=== PATIENT | female | born 1955 | race Caucasian/White ===

== ENCOUNTER → 2022-08-15 14:03 | Outpatient (BNVA) | payer OTHER, SELFPAY | PROVIDERS: Visit Provider Internal Medicine | DX: I25.10 Atherosclerotic heart disease of native coronary artery without angina pectoris (principal); I47.20 Ventricular tachycardia, unspecified; I50.32 Chronic diastolic (congestive) heart failure; I48.19 Other persistent atrial fibrillation; Z95.2 Presence of prosthetic heart valve; Z86.718 Personal history of other venous thrombosis and embolism; Z79.01 Long term (current) use of anticoagulants; Z79.899 Other long term (current) drug therapy; Z45.02 Encounter for adjustment and management of automatic implantable cardiac defibrillator | CPT/HCPCS: 93005; 99202 ==

== ENCOUNTER 2022-09-14 14:03 | Outpatient (REF) | payer OTHER, SELFPAY ==
--- NOTE | 2022-09-14 15:03 | CA_ITS ---
Transthoracic Echocardiogram Patient (Last, First, Middle): Mirna Dwyer, Gender: Female Date of : 1955 Age: 66 Procedure Date: 09/14/2022 Procedure Type: Transthoracic Echocardiogram Location: OP Height: 152.4 cm Weight: 68.04 kg BSA: 1.65 m2 Heart Rate: bpm BP: 116 / 56 mmHg Airline Pilot/First Officer: Referring MD: Ok Macias MD Math Professor: Danie Howell MD Symptoms: i47.2 v tach Z95.2 - Presence of prosthetic heart valve Study Quality: Adequate ECG Rhythm: Sinus with extra beats Conclusions: - 1. Normal LV systolic function 2. Moderate right-sided chamber enlargement 3. Normally function bioprosthetic mitral valve in place with mean gradient of 3 mmHg 4. Normal RV systolic pressure 5. No gross pericardial effusion Findings Left Ventricle Normal left ventricular size, thickness, and systolic function. The visually estimated ejection fraction is between 55-60%. Diastolic function is indeterminate on the basis of available data. Right Ventricle Moderately increased right ventricular cavity size. There is a pacemaker wire seen in the right ventricle. Atria The left atrium is likely dilated. Patent foramen ovale detected using by color Doppler. There is evidence of a patent foramen ovale with left to right shunting. The right atrium is moderately dilated. Aortic Valve The aortic valve was not well visualized. There is mild calcification of the aortic valve. There is no aortic valve stenosis. There is mild aortic valve regurgitation. Mitral Valve A bioprosthetic mitral valve is present. The prosthetic mitral valve appears to be functioning normally. the bioprosthetic valve is well seated without abnormal rocking motion. There is no significant mitral regurgitation appreciated on this study. Mean gradient across the mitral valve is 3 mmHg Pulmonic Valve The pulmonic valve was not well visualized. Tricuspid Valve Likely normal tricuspid valve structure and function. There is mild tricuspid valve regurgitation. The right ventricular systolic pressure is normal. The right ventricular systolic pressure is 27 mmHg. Normal right atrial pressure. There is no evidence of pulmonary hypertension. Great Vessels All visible segments of the aorta are normal in size. The pulmonary artery was not well visualized. Venous The inferior vena cava is normal in size and collapses greater than 50% with inspiration. Pericardium/Pleural There is no evidence of pericardial effusion. Prior Study Comparison No prior study available for comparison. Measurements 2D Linear Measurements IVSd: 1.05 0.6-0.9/0.6-1.0 cm LVIDd: 3.86 3.9-5.3/4.2-5.9 cm LVIDd Index: 2.34 2.4-3.2/2.2-3.1 cm/m2 LVIDs: 2.57 2.0-3.6 cm LVPWd: 1.01 0.7-1.1 cm Ao Root: 2.60 2.1-3.5 cm LA Diam: 4.50 2.7-3.8/3.0-4.0 cm LAIDs Index: 2.73 1.5-2.3 cm/m2 LV Mass: 155.96 67-162/88-224 g LV Mass Index: 94.52 43-95/49-115 g/m2 LVOT Diam: 2.20 3.0+(-)1.3 cm Mitral Valve MV VTI: 0.40 MV Pk Ryan: 1.33 MV Mn Ryan: 0.77 MV Pk Grad: 7.00 MV Mn Grad: 3.00 MV Pk E: 1.04 MV Decel Time: 365.00 E'Lateral: 11.90 E'Medial: 8.05 E/E' Med: 12.90 E/E' Lat: 8.70 PHT: 107.00 MVA PHT: 2.06 MVA Continuity: 2.89 Decel Duval: 2.84 Aortic Valve AoV Pk Ryan: 1.53 AoV Mn Ryan: 0.97 AoV VTI: 0.31 AoV Pk Grad: 9.00 Aov Mn Grad: 5.00 KATH Cont.VTI: 3.70 AI Pk Ryan: 4.13 AI Duval: 1.54 LVOT LVOT Pk Ryan: 1.33 LVOT Mn Ryan: 0.93 LVOT VTI: 0.31 LVOT Pk Grad: 7.00 LVOT Mn Grad: 4.00 LVOT Diam: 2.20 LVOT Area: 3.80 Diastolic Function MV Pk E: 1.04 E'Medial: 8.05 E/E' Med: 12.90 E' Laterial: 11.90 E/E' Lat: 8.70 Tricuspid Valve TR Pk Ryan: 2.46 TR Pk Grad: 24.00 RA Press: 3.00 RVSP: 27.00 Great Vessels Aorta Ao Root-2D: 2.60 2.0-3.7 cm Ao Asc: 3.10 2.1-3.4 cm Pulmonary Valve PV Pk Ryan: 0.72 Peak PV Grad: 2.00 Updated in Other Vendor System with Status of Final Danie Howell MD electronically signed on 09/15/2022 11:40:25 AM with status of Final
--- NOTE | 2022-09-14 17:01 | PFT_ITS ---
Forced vital capacity 63%, FEV1 68%, FEV1/FVC ratio is 82. [id number] 70%. MVV 67%. Post bronchodilator therapy, there is no significant change except the FEF increases by 13%. Total lung capacity 79%. Residual volume 95%. Diffusion capacity 69%. CONCLUSION: 1. Mild restrictive pulmonary disorder. 2. A possible very mild small airway obstructive disorder, which improved to normal after bronchodilator therapy. There is a small possibility that patient may have a mild degree of bronchial asthma or reactive airways; however, this will be correlated with clinical picture. MD MEGHA Medina/MODL / [id number]
== END 2022-09-14 14:04 | disposition home or self-care (01) ==
LOC: HO.RESP 14:03
PROVIDERS: Visit Provider Internal Medicine
DX: R06.02 Shortness of breath (principal); I47.20 Ventricular tachycardia, unspecified; I50.32 Chronic diastolic (congestive) heart failure; Z95.2 Presence of prosthetic heart valve
CPT/HCPCS: 93306; 94060; 94727; 94729

== ENCOUNTER → 2022-10-25 14:28 | Outpatient (BNVA) | payer OTHER, SELFPAY | PROVIDERS: PCP Family Medicine; Visit Provider Internal Medicine | DX: J98.4 Other disorders of lung (principal); R06.09 Other forms of dyspnea; M41.20 Other idiopathic scoliosis, site unspecified | CPT/HCPCS: 99202 ==

== ENCOUNTER → 2023-01-01 13:55 | Outpatient (BNVA) | payer OTHER, MEDICAID, SELFPAY | PROVIDERS: PCP Family Medicine; Visit Provider Internal Medicine | DX: R94.2 Abnormal results of pulmonary function studies (principal); R06.00 Dyspnea, unspecified; J98.4 Other disorders of lung; M41.20 Other idiopathic scoliosis, site unspecified | CPT/HCPCS: Q3014 ==

== ENCOUNTER → 2023-01-03 13:24 | Outpatient (BNVA) | payer OTHER, MEDICAID, SELFPAY | PROVIDERS: PCP Family Medicine; Visit Provider Internal Medicine | DX: I47.20 Ventricular tachycardia, unspecified (principal); I48.19 Other persistent atrial fibrillation; I25.10 Atherosclerotic heart disease of native coronary artery without angina pectoris; I50.32 Chronic diastolic (congestive) heart failure; Z95.2 Presence of prosthetic heart valve | CPT/HCPCS: 93005; 99212 ==

== ENCOUNTER 2023-02-21 14:17 | Outpatient (REF) | payer OTHER, MEDICAID, SELFPAY ==
--- NOTE | ~2023-02-21 | XR_ITS ---
EXAMINATION: XR lumbar spine 6V w bending, XR sacroiliac joint min 3V CLINICAL INFORMATION: Reason for Exam M41.20 - Other idiopathic scoliosis, site unspecified COMPARISON: None TECHNIQUE: 7 views of the lumbar spine. 3 views of the sacroiliac joints FINDINGS: 5 nonrib-bearing lumbar-type vertebral bodies. Vertebral body heights are maintained. Marked levoconvex scoliosis of the thoracolumbar spine which limits evaluation with moderate multilevel degenerative disc disease with loss of disc space height and facet arthropathy. There is stepwise grade 1 retrolisthesis of L1 on L2 and L2 on L3 which appears exaggerated in flexion. No definite pars defects appreciated within limitations of the exam given scoliosis. Partially imaged cardiac pacer, median sternotomy wires, mediastinal surgical clips and cardiac valve prosthesis. Atherosclerotic calcifications of the abdominal aorta. Sacroiliac joint spaces are maintained. No appreciable sacral fracture. Calcified phleboliths in the pelvis. XR/XR lumbar spine 6V w bending IMPRESSION: 1. Marked levoconvex scoliosis of the thoracolumbar spine which limits evaluation with moderate multilevel degenerative disc disease with loss of disc space height and facet arthropathy. 2. There is stepwise grade 1 retrolisthesis of L1 on L2 and L2 on L3 which appears exaggerated in flexion. No definite pars defects appreciated within limitations of the exam given scoliosis. 3. Sacroiliac joint spaces are maintained. No appreciable sacral fracture.
--- NOTE | ~2023-02-21 | XR_ITS ---
EXAMINATION: XR lumbar spine 6V w bending, XR sacroiliac joint min 3V CLINICAL INFORMATION: Reason for Exam M41.20 - Other idiopathic scoliosis, site unspecified COMPARISON: None TECHNIQUE: 7 views of the lumbar spine. 3 views of the sacroiliac joints FINDINGS: 5 nonrib-bearing lumbar-type vertebral bodies. Vertebral body heights are maintained. Marked levoconvex scoliosis of the thoracolumbar spine which limits evaluation with moderate multilevel degenerative disc disease with loss of disc space height and facet arthropathy. There is stepwise grade 1 retrolisthesis of L1 on L2 and L2 on L3 which appears exaggerated in flexion. No definite pars defects appreciated within limitations of the exam given scoliosis. Partially imaged cardiac pacer, median sternotomy wires, mediastinal surgical clips and cardiac valve prosthesis. Atherosclerotic calcifications of the abdominal aorta. Sacroiliac joint spaces are maintained. No appreciable sacral fracture. Calcified phleboliths in the pelvis. XR/XR sacroiliac joint min 3V IMPRESSION: 1. Marked levoconvex scoliosis of the thoracolumbar spine which limits evaluation with moderate multilevel degenerative disc disease with loss of disc space height and facet arthropathy. 2. There is stepwise grade 1 retrolisthesis of L1 on L2 and L2 on L3 which appears exaggerated in flexion. No definite pars defects appreciated within limitations of the exam given scoliosis. 3. Sacroiliac joint spaces are maintained. No appreciable sacral fracture.
== END 2023-02-21 14:18 | disposition home or self-care (01) ==
LOC: HO.XRAY 14:17
PROVIDERS: PCP Family Medicine; Visit Provider Nurse Practitioner Family
DX: M41.20 Other idiopathic scoliosis, site unspecified (principal); M51.36 Other intervertebral disc degeneration, lumbar region; M47.816 Spondylosis without myelopathy or radiculopathy, lumbar region; M53.3 Sacrococcygeal disorders, not elsewhere classified
CPT/HCPCS: 72114; 72202; 99202

== ENCOUNTER → 2023-03-04 23:59 | Outpatient (BNV) | payer OTHER, MEDICAID, SELFPAY ==
--- NOTE | 2023-03-06 14:32 | A.OFFVIS_ITS ---
Intake Intake Visit Reasons: Remote ICD Check- Agilvax Allergies No Known Allergies Allergy (Verified 02/21/23 14:29) [facility] Medical History Atherosclerotic cardiovascular disease Cardiac defibrillator in place Chronic heart failure with preserved ejection fraction PITTS (dyspnea on exertion) Persistent atrial fibrillation Restrictive lung disease Scoliosis (and kyphoscoliosis), idiopathic Ventricular tachycardia Surgical History History of open heart surgery S/P transcatheter mitral valve replacement (TMVR) Status post aorto-coronary artery bypass graft Status post mitral valve replacement with bioprosthetic valve Family History Mother No problems noted. Father No problems noted. Social History Alcohol intake: never Patient Tobacco Use Status: Former Tobacco user Office Procedures Cardiac Device Check Cardiac Device Check Details: Date of service 03/04/2023; Battery life <3 months; normal lead parameters; no treated VT/VF; ; normal ICD function. [id number] Cardiac Interrogation, implant defibrillator w/interim Procedure code (CPT) selection complete Assessment & Plan Assessment & Plan (1) Persistent atrial fibrillation: Code(s): I48.19 - Other persistent atrial fibrillation (2) Chronic heart failure with preserved ejection fraction: Code(s): I50.32 - Chronic diastolic (congestive) heart failure (3) Ventricular tachycardia: Code(s): I47.20 - Ventricular tachycardia, unspecified Coding Level of Care Code Procedure Only Diagnoses Persistent atrial fibrillation I48.19 Chronic heart failure with preserved ejection fraction I50.32 Ventricular tachycardia I47.20 CPT Codes Cardiac Device Check - Cardiac Device 13: [id number] Cardiac Interrogation, implant defibrillator w/interim ([id number])
== END ==
PROVIDERS: PCP Family Medicine; Visit Provider Internal Medicine
DX: I48.19 Other persistent atrial fibrillation (principal); Z95.810 Presence of automatic (implantable) cardiac defibrillator
CPT/HCPCS: 93295

== ENCOUNTER 2023-04-10 15:19 | Outpatient (REF) | payer OTHER, MEDICAID, SELFPAY ==
--- NOTE | ~2023-04-10 | CT_ITS ---
EXAMINATION: CT LUMBAR SPINE WITHOUT CONTRAST CLINICAL INFORMATION: Idiopathic scoliosis. COMPARISON: None available. TECHNIQUE: Axial 2 mm thin and reformatted 2 mm thin sagittal and coronal images of lumbar spine were obtained without contrast. This CT examination was performed using dose optimization techniques as appropriate, variously including the following: *Automated exposure control. *Adjustment of mA and/or kV according to patient size (this includes techniques or standardized protocols for targeted exams where dose is matched to indication/reason for exam; i.e. extremities or head). *Use of iterative reconstruction technique. DLP; 428 mGy-cm FINDINGS: There is significant levorotoscoliosis of dorsal lumbar junction. The vertebral heights are fairly in alignment. There is loss of L2-L3, L1-L2 and T2-L1 disc heights. The L4-L5 and L5-S1 disc heights are normal. There is significant bilateral L5-S1 and moderate residual lumbar facet joint arthropathy and hypertrophy. The T12-L1, L1-L2 disc levels are unremarkable. At L2-L3 disc level, there is mild AP canal stenosis secondary to facet joint arthropathy and scoliosis. There is moderate left neural foraminal narrowing secondary to scoliosis and moderate facet joint arthropathy. The right neural foramina is patent. No evidence of disc bulge or herniation. At L3-L4 disc level, there is no evidence of disc bulge, herniation or spinal stenosis. There is moderate narrowing of left neural foramina secondary to scoliosis and facet joint arthropathy. The right neural foramina is patent. At L4-L5 disc level, there is no evidence of disc bulge, herniation or spinal stenosis. The neural foramina are patent bilaterally. At L5-S1 disc level, no evidence of disc bulge, herniation or spinal canal stenosis. The neural foramina is patent. No aggressive lytic or sclerotic process seen. SI joints appear symmetrical. The paravertebral soft tissues are normal. There is mild sigmoid colon diverticulosis without diverticulitis. The presacral soft tissues are normal. CT/CT lumbar spine wo IV con IMPRESSION: 1. Levorotoscoliosis of dorsolumbar spine. 2. There are degenerative disc changes in the upper lumbar spine at the L4-L5 and L5-S1 disc heights appearing normal. 3. There is moderate narrowing of left neural foramina at L2-L3 and L3-L4 disc level due to levoscoliosis and moderate left facet joint arthropathy. 4. No disc bulge, herniation or spinal canal stenosis seen at any of the disc levels.
== END 2023-04-10 15:20 | disposition home or self-care (01) ==
LOC: HO.CT 15:19
PROVIDERS: PCP Family Medicine; Visit Provider Nurse Practitioner Family
DX: M41.20 Other idiopathic scoliosis, site unspecified (principal); M51.36 Other intervertebral disc degeneration, lumbar region
CPT/HCPCS: 72131

== ENCOUNTER 2023-05-06 13:08 | Outpatient (AMB) | payer OTHER, MEDICAID, SELFPAY ==
--- NOTE | 2023-05-06 13:23 | HO.SPINEOV ---
Intake Intake Visit Reasons: intervertebral disc degeneration, lumbar region Intake Note: Ms. Dwyer is here today c/o low back pain. CT Scan done @ [facility] [place]. Strategic Account Executive Required: No Allergies No Known Allergies Allergy (Verified 02/21/23 14:29) Assessment & Plan Assessment & Plan (1) Back pain: Code(s): M54.9 - Dorsalgia, unspecified Plan Dear Lorie, Thank you for referring Mrs Dwyer to our office today. She is a 67-year-old female who presents to the office today for evaluation of back pain in the setting of scoliosis. The patient has known about her scoliosis since she was young girl, was seen at some point [place] many years ago and recommended to have surgery but at that time the pain was not that bad so she deferred this. She tried physical therapy for years, had some kind of cortisone injection done in [place] many years ago but nothing really ever helped. She is not sure what kind of injection. The patient reports that her symptoms are only present when she is standing and moving around. When she sitting she is reasonably comfortable. She takes Suboxone and Tylenol for the pain. She also takes gabapentin. Denies any radicular pain down the legs. PMH: She has a history of congestive heart failure, she had open-heart surgery in believe she had a valve replaced and possibly bypass surgery but she can not recall all the details. She did have an implanted defibrillator done a number of years ago. She has never had any back surgery. She does have a history of restrictive lung disease, atrial fibrillation and remote history of a blood clot in her leg Social hx: She does not smoke Medications: Torsemide, Eliquis, Suboxone, sotalol, gabapentin, Tylenol and aspirin Allergies: None Physical exam: She stands with the scoliotic curvature, her gross motor strength is normal with normal reflexes. Imaging review: There is a lumbar CT done at [facility] showing an advanced severe degenerative scoliosis curve from T10-L3. There is lateral listhesis at the upper and lower levels of this scoliosis. She also has diffuse facet arthropathy throughout her lumbar spine. Impression: 67-year-old female presents for evaluation today of low back pain across her lower lumbar region as well as across the sacroiliac regions with an advanced severely scoliotic curvature from T10-L3 with overlapping lumbar facet arthropathy at multiple levels up and down the lumbar spine. She has a relatively complicated situation and that not only is her scoliosis severe but her x-rays and CT show that her bone quality is suboptimal. Under taking a scoliosis correction this patient brings with that certain challenges not only due to her bone quality and the anatomy but also her medical history. It might be safest to start with something simple like injections, which she has not had for many years and at least would help us localize some of the symptoms and make her quality of life better. You could consider facet injections or SI joint injections with follow-up radiofrequency ablations if these have any success. I will review her films with Dr. Jaimes, but at this time I am doubtful he is going to recommend scoliosis correction and neither is the patient all that interested in the recovery from such an extensive surgery. Thank you for allowing us to care for your patient. The total time spent with this visit with this patient was 45 minutes reviewing history, physical exam, lumbar CT imaging review, and implementation of treatment plan or further diagnostic testing Tito Jaimes MD,PhD [facility] Coding Level of Care Code New Pt Level 4 (48333) Diagnoses Back pain M54.9
== END 2023-05-06 13:47 | disposition home or self-care (01) ==
PROVIDERS: PCP Family Medicine; Referring Provider Nurse Practitioner Family; Visit Provider Physician Assistant
DX: M54.9 Dorsalgia, unspecified (principal)
CPT/HCPCS: 99204; 99214

== ENCOUNTER → 2023-05-06 13:08 | Outpatient (BNVA) | payer OTHER, MEDICAID, SELFPAY | PROVIDERS: PCP Family Medicine; Visit Provider Physician Assistant | DX: M54.9 Dorsalgia, unspecified (principal); M41.9 Scoliosis, unspecified | CPT/HCPCS: 99202 ==

== ENCOUNTER → 2023-06-09 23:59 | Outpatient (BNV) | payer OTHER, MEDICAID, SELFPAY ==
--- NOTE | 2023-06-12 14:26 | MHC.OFFVIS ---
Intake Intake Visit Reasons: Remote ICD Check- Holganix Allergies No Known Allergies Allergy (Verified 02/21/23 14:29) [facility] Medical History Atherosclerotic cardiovascular disease Cardiac defibrillator in place Chronic heart failure with preserved ejection fraction PITTS (dyspnea on exertion) Persistent atrial fibrillation Restrictive lung disease Scoliosis (and kyphoscoliosis), idiopathic Ventricular tachycardia Surgical History History of open heart surgery S/P transcatheter mitral valve replacement (TMVR) Status post aorto-coronary artery bypass graft Status post mitral valve replacement with bioprosthetic valve Family History Mother No problems noted. Father No problems noted. Social History Alcohol intake: never Patient Tobacco Use Status: Former Tobacco user Office Procedures Cardiac Device Check Cardiac Device Check Details: Date of service- 06/09/2023 ; Battery life 15 years; normal lead parameters; PARK WORKER SUPERVISOR 5%; no significant arrhythmias. Overall normal device function. [id number] Cardiac Device Interrogation, pacemaker Procedure code (CPT) selection complete Assessment & Plan Assessment & Plan (1) Persistent atrial fibrillation: Code(s): I48.19 - Other persistent atrial fibrillation Coding Level of Care Code Procedure Only Diagnoses Persistent atrial fibrillation I48.19 CPT Codes Cardiac Device Check - Cardiac Device 12: [id number] Cardiac Device Interrogation, pacemaker ([id number])
== END ==
PROVIDERS: PCP Family Medicine; Visit Provider Internal Medicine
DX: I48.19 Other persistent atrial fibrillation (principal); Z95.0 Presence of cardiac pacemaker
CPT/HCPCS: 93294

== ENCOUNTER 2023-09-03 15:03 | Outpatient (AMB) | payer OTHER, MEDICAID, SELFPAY ==
--- NOTE | 2023-09-03 15:06 | MHC.OFFVIS ---
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 She was initially seen in our office last summer 2022 and underwent Neurosurgical evaluation. She was deemed non-surgical candidate at that time for thoracolumbar extensive scoliosis correction at her age. She was recommended to consider injections for low back pain with degenerative changes. Patient reports low back pain without radicular symptoms. She has difficulty to stand or sit upright due to scoliosis and chronic pain. She is interested to proceed with diagnostic lumbar medial branch blocks for potential therapeutic injections or lumbar spine RFA procedure. Currently, she is managing her pain with Suboxone, gabapentin, Tylenol, and heat therapy with continued symptoms. She completed PT 2 years ago with minimal improvement. Patient is not able to tolerate PT or HEP at this time due to significant low back pain. Pain is rated at 10/10. Denies any fever, abdominal or groin pain, foot drop, weakness, bladder or bowel incontinence or saddle anesthesia. PRIOR: Patient is a pleasant 67 years old female with complex medical and surgical history presents today neck to lower back pain. Back pain has been chronic for her and has been progressively getting worse with activities, with walking (3-5 min), standing (10 min), bending, or changing positions. She reports history of spine injections in [place] that were helpful at first but no longer beneficial. She has completed formal physical therapy 2 years ago and has continued home exercise program and strength training but reports due to cardiac issues and significant back pain related to scoliosis is not able to exercise. Currently takes gabapentin 1000 mg TID, Tylenol 1000 mg TID prn, Ibuprofen with partial symptom relief. Lidocaine patches were ineffective. Patient is also takes Suboxone ([place]) with previous history of Vicodin addiction, reports all prescription PO use, never street or injection use. Patient with Afib, has pacer in ICD pacer in place since 1995 and replaced in 2002 and on Eliquis 5 mg BID. Reports she has been told osteoporosis but cannot recall if she had bone scan. Patient's back pain is mostly axial, radiating into right upper buttock and lateral right hip and localized tenderness in the projection of right sacroiliac joint area. Pain is described as constant aching, cramping and stabbing. SLR testing is negative bilaterally. Patient has limited lumbar range of motion or movement with significant scoliosis and kyphosis which causes her small lung capacity and dyspnea. Pain affects her daily activities, functioning, sleep, mood and quality of life. Denies any fever, abdominal or groin pain, bladder or bowel incontinence or saddle anesthesia. FORMERLY [facility] Medical History Scoliosis (and kyphoscoliosis), idiopathic PITTS (dyspnea on exertion) Restrictive lung disease Atherosclerotic cardiovascular disease Persistent atrial fibrillation Chronic heart failure with preserved ejection fraction Ventricular tachycardia Cardiac defibrillator in place Surgical History Status post mitral valve replacement with bioprosthetic valve Status post aorto-coronary artery bypass graft S/P transcatheter mitral valve replacement (TMVR) History of open heart surgery Family History Mother No problems noted. Father No problems noted. Social History Alcohol intake: never Patient Tobacco Use Status: Former Tobacco user Review of Systems Const All systems reviewed & are unremarkable except as noted in HPI and below Neuro Denies Sensory deficit (Neuro) Physical Exam General: Appears afebrile. Alert and oriented. Mood and affect appropriate. Follows and participates in conversation appropriately. Respiratory effort is unlabored. No cough. Able to transition from sit to stand unassisted. Uses cane with ambulation. Able to stand on toes and heels but tends to become unsteady when walking on toes or heels. Back/Spine/Pelvis Other: Lumbar extension and flexion reproduce significant pain. Facet loading is positive bilaterally. Demonstrates 5/5 strength of quadriceps bilaterally as well as flexion/dorsiflexion of bilateral feet against resistance. 2+ pedal pulses bilaterally. Seated straight leg rise with dorsiflexion negative bilaterally. +1 patellar and achilles reflexes bilaterally. Vandana sign positive on the right, Ismael?s, Pelvic compression and Stinchfield tests are positive on the right. No groin pain with I/E hip rotations. Valsalva maneuver negative. Cervical Spine: loss of normal cervical lordosis, pain with cervical ROM and No Cervical spine tenderness Thoracic/Lumbar Spine: thoracic and lumbar spine normal to inspection, No Thoracic/lumbar spine scar(s), Lasegue's sign negative, straight leg raise negative bilaterally, kyphosis, pain with thoraco-lumbar ROM, paraspinal muscle tenderness, Thoracic/lumbar scoliosis, No thoracic spinal tenderness and lumbar spinal tenderness Sacroiliac joints: on the right tender to palpation and on the left nontender Neuro General: moves all extremities, Normal light touch and pain sensation and CN's II-XI intact bilaterally Gait exam (Neuro): Antalgic gait present and Assistive device used Motor exam (neuro): 5/5 motor strength present throughout, no tremor noted and Motor abnormalities not present Sensory Exam: No Sensory deficit (Neuro) Results Reviewed Results Reviewed: CT LUMBAR SPINE WITHOUT CONTRAST 04/10/23 CLINICAL INFORMATION: Idiopathic scoliosis. FINDINGS: There is significant levorotoscoliosis of dorsal lumbar junction. The vertebral heights are fairly in alignment. There is loss of L2-L3, L1-L2 and T2-L1 disc heights. The L4-L5 and L5-S1 disc heights are normal. There is significant bilateral L5-S1 and moderate residual lumbar facet joint arthropathy and hypertrophy. The T12-L1, L1-L2 disc levels are unremarkable. At L2-L3 disc level, there is mild AP canal stenosis secondary to facet joint arthropathy and scoliosis. There is moderate left neural foraminal narrowing secondary to scoliosis and moderate facet joint arthropathy. The right neural foramina is patent. No evidence of disc bulge or herniation. At L3-L4 disc level, there is no evidence of disc bulge, herniation or spinal stenosis. There is moderate narrowing of left neural foramina secondary to scoliosis and facet joint arthropathy. The right neural foramina is patent. At L4-L5 disc level, there is no evidence of disc bulge, herniation or spinal stenosis. The neural foramina are patent bilaterally. At L5-S1 disc level, no evidence of disc bulge, herniation or spinal canal stenosis. The neural foramina is patent. No aggressive lytic or sclerotic process seen. SI joints appear symmetrical. The paravertebral soft tissues are normal. There is mild sigmoid colon diverticulosis without diverticulitis. The presacral soft tissues are normal. IMPRESSION: 1. Levorotoscoliosis of dorsolumbar spine. 2. There are degenerative disc changes in the upper lumbar spine at the L4-L5 and L5-S1 disc heights appearing normal. 3. There is moderate narrowing of left neural foramina at L2-L3 and L3-L4 disc level due to levoscoliosis and moderate left facet joint arthropathy. 4. No disc bulge, herniation or spinal canal stenosis seen at any of the disc levels. XR lumbar spine 6V w bending, XR sacroiliac joint min 3V on 02/21/23 FINDINGS: 5 nonrib-bearing lumbar-type vertebral bodies. Vertebral body heights are maintained. Marked levoconvex scoliosis of the thoracolumbar spine which limits evaluation with moderate multilevel degenerative disc disease with loss of disc space height and facet arthropathy. There is stepwise grade 1 retrolisthesis of L1 on L2 and L2 on L3 which appears exaggerated in flexion. No definite pars defects appreciated within limitations of the exam given scoliosis. Partially imaged cardiac pacer, median sternotomy wires, mediastinal surgical clips and cardiac valve prosthesis. Atherosclerotic calcifications of the abdominal aorta. Sacroiliac joint spaces are maintained. No appreciable sacral fracture. Calcified phleboliths in the pelvis. IMPRESSION: 1. Marked levoconvex scoliosis of the thoracolumbar spine which limits evaluation with moderate multilevel degenerative disc disease with loss of disc space height and facet arthropathy. 2. There is stepwise grade 1 retrolisthesis of L1 on L2 and L2 on L3 which appears exaggerated in flexion. No definite pars defects appreciated within limitations of the exam given scoliosis. 3. Sacroiliac joint spaces are maintained. No appreciable sacral fracture. Assessment & Plan Assessment & Plan (1) Scoliosis (and kyphoscoliosis), idiopathic: Comment: PATIENT HAS CHRONIC MODERATELY SEVERE SCOLIOSIS, CHRONIC BACK DISCOMFORT FOR WHICH SHE IS BEING TREATED. Code(s): M41.20 - Other idiopathic scoliosis, site unspecified (2) Lumbar degenerative disc disease: Code(s): M51.36 - Other intervertebral disc degeneration, lumbar region (3) Lumbar spondylosis: Code(s): M47.816 - Spondylosis without myelopathy or radiculopathy, lumbar region (4) Sacroiliac joint pain: Code(s): M53.3 - Sacrococcygeal disorders, not elsewhere classified Plan Discussed interventional treatments for chronic low back pain. Patient is not candidate for SCS or PNS therapy due to potential interference with ICD pacer. Discussed diagnostic injections for potential lumbar medial branch RFA vs therapeutic injections. Schedule Bilateral Diagnostic L3-L4 DR L5 MBBs with local and fluoroscopy. All questions and concerns have been answered and patient agreed with the plan. Follow up after injections and sooner if needed. Anticoagulation: Patient on anticoagulation (Eliquis) and instructions given on when to pause with prescribing physician permission. Justification for interventional therapy: ? Patient with average pain > 6/10 ? Patient has exhausted conservative therapy, opioid medication, gabapentin, Tylenol, PT The risks, consequences, alternatives, and benefits of various treatment options were discussed with the patient in great detail, including conservative management, injections and procedures. Coding Level of Care Code Est Pt Level 4 (50389) Diagnoses Scoliosis (and kyphoscoliosis), idiopathic M41.20 Lumbar degenerative disc disease M51.36 Lumbar spondylosis M47.816 Sacroiliac joint pain M53.3
[2023-09-03 15:10] VITALS: BP 139/65; PULSE 70; O2SAT 98; BMI 30.3
== END 2023-09-03 15:27 | disposition home or self-care (01) ==
PROVIDERS: PCP Family Medicine; Visit Provider Nurse Practitioner Family
DX: M41.20 Other idiopathic scoliosis, site unspecified (principal); M51.36 Other intervertebral disc degeneration, lumbar region; M47.816 Spondylosis without myelopathy or radiculopathy, lumbar region; M53.3 Sacrococcygeal disorders, not elsewhere classified
CPT/HCPCS: 99214

== ENCOUNTER → 2023-09-03 15:03 | Outpatient (BNVA) | payer OTHER, MEDICAID, SELFPAY | PROVIDERS: PCP Family Medicine; Visit Provider Nurse Practitioner Family | DX: M41.20 Other idiopathic scoliosis, site unspecified (principal); M51.36 Other intervertebral disc degeneration, lumbar region; M47.816 Spondylosis without myelopathy or radiculopathy, lumbar region; M53.3 Sacrococcygeal disorders, not elsewhere classified | CPT/HCPCS: 99212 ==

== ENCOUNTER → 2023-09-09 23:59 | Outpatient (BNV) | payer OTHER, MEDICAID, SELFPAY ==
--- NOTE | 2023-09-15 19:14 | MHC.OFFVIS ---
Intake Intake Visit Reasons: Remote ICD Check- [employer] Allergies No Known Allergies Allergy (Verified 09/03/23 15:11) [facility] Medical History Scoliosis (and kyphoscoliosis), idiopathic PITTS (dyspnea on exertion) Restrictive lung disease Atherosclerotic cardiovascular disease Persistent atrial fibrillation Chronic heart failure with preserved ejection fraction Ventricular tachycardia Cardiac defibrillator in place Surgical History Status post mitral valve replacement with bioprosthetic valve Status post aorto-coronary artery bypass graft S/P transcatheter mitral valve replacement (TMVR) History of open heart surgery Family History Mother No problems noted. Father No problems noted. Social History Alcohol intake: never Patient Tobacco Use Status: Former Tobacco user Office Procedures Cardiac Device Check Cardiac Device Check Details: Date of service 09/09/2023; Battery life 15 years; normal lead parameters; no treated VT/VF; normal ICD function. [id number] Cardiac Interrogation, implant defibrillator w/interim Procedure code (CPT) selection complete Assessment & Plan Assessment & Plan (1) Chronic heart failure with preserved ejection fraction: Code(s): I50.32 - Chronic diastolic (congestive) heart failure (2) Ventricular tachycardia: Code(s): I47.20 - Ventricular tachycardia, unspecified Plan x Coding Level of Care Code Procedure Only Diagnoses Chronic heart failure with preserved ejection fraction I50.32 Ventricular tachycardia I47.20 CPT Codes Cardiac Device Check - Cardiac Device 13: [id number] Cardiac Interrogation, implant defibrillator w/interim ([id number])
== END ==
PROVIDERS: PCP Family Medicine; Visit Provider Internal Medicine
DX: I47.20 Ventricular tachycardia, unspecified (principal); Z95.810 Presence of automatic (implantable) cardiac defibrillator
CPT/HCPCS: 93295

== ENCOUNTER 2023-09-24 06:25 | Outpatient (REF) | payer OTHER, MEDICAID, SELFPAY ==
--- NOTE | ~2023-09-24 | FL_ITS ---
INDICATION: Intraoperative fluoroscopy. FLUOROSCOPY: Fluoroscopy Time: 0.4 minutes Dose/air kerma: 5.02 mGy Images saved: 6 FINDINGS: Multiple intraoperative fluoroscopic images are submitted during reported bilateral lumbar injections. Correlation with operative report. Evaluation is limited secondary to fluoroscopic technique. IMPRESSION: Intra-operative fluoroscopic imaging provided by radiology during reported bilateral lumbar injections. Please refer to operative note for further information.
== END 2023-09-24 06:26 | disposition home or self-care (01) ==
LOC: CF 06:25
PROVIDERS: Visit Provider Anesthesiology
DX: M47.816 Spondylosis without myelopathy or radiculopathy, lumbar region (principal); M41.20 Other idiopathic scoliosis, site unspecified; M51.36 Other intervertebral disc degeneration, lumbar region; M53.3 Sacrococcygeal disorders, not elsewhere classified
CPT/HCPCS: 64493; 64494; J2795; Q9967

== ENCOUNTER 2023-09-24 14:29 | Outpatient (AMB) | payer OTHER, MEDICAID, SELFPAY ==
--- NOTE | 2023-09-24 15:37 | MHC.OFFVIS ---
Intake Vital Signs 09/24/23 15:42 09/24/23 15:42 Height 5 ft 5 ft Weight 155 lb 155 lb BMI 30.3 30.3 BP 108/70 108/72 Blood Pressure Location Lt brachial Lt brachial Position Sitting Sitting Respiration 14 14 Pulse 83 80 Pulse Source Pulse Oximeter Pulse Oximeter Pulse Oximetry (%) 95 96 Oxygen Delivery Method Room Air Room Air Comment pre-op post-op Intake Visit Reasons: miller Dx L3-L4-DR-L5 MBB Allergies No Known Allergies Allergy (Verified 09/24/23 15:49) FOR[facility]LY [facility], [facility] Medical History Scoliosis (and kyphoscoliosis), idiopathic PITTS (dyspnea on exertion) Restrictive lung disease Atherosclerotic cardiovascular disease Persistent atrial fibrillation Chronic heart failure with preserved ejection fraction Ventricular tachycardia Cardiac defibrillator in place Surgical History Status post mitral valve replacement with bioprosthetic valve Status post aorto-coronary artery bypass graft S/P transcatheter mitral valve replacement (TMVR) History of open heart surgery Family History Mother No problems noted. Father No problems noted. Social History Alcohol intake: never Patient Tobacco Use Status: Former Tobacco user Physical Exam Vital Signs: Last Vital Signs Pulse 80 09/24/23 15:42 Resp 14 09/24/23 15:42 BP 108/72 09/24/23 15:42 Pulse Ox 96 09/24/23 15:42 Oxygen Delivery Method Room Air 09/24/23 15:42 BMI result Body Mass Index 30.3 Assessment & Plan Assessment & Plan (1) Scoliosis (and kyphoscoliosis), idiopathic: Comment: PATIENT HAS CHRONIC MODERATELY SEVERE SCOLIOSIS, CHRONIC BACK DISCOMFORT FOR WHICH SHE IS BEING TREATED. Code(s): M41.20 - Other idiopathic scoliosis, site unspecified (2) Lumbar degenerative disc disease: Code(s): M51.36 - Other intervertebral disc degeneration, lumbar region (3) Lumbar spondylosis: Code(s): M47.816 - Spondylosis without myelopathy or radiculopathy, lumbar region Plan: Diagnostic bilateral L3-L4 does ramus L5 medial branch block Informed consent was explained to the patient. All questions were explained and? answered.? The patient was taken inside the operating room where she was positioned prone on the operating table.? Time-out was performed delineating correct site, side, the nature of the procedure, patient's allergy, preoperative antibiotic if needed.? All operating room staff was participating in OR time-out procedure. The lower back was prepped with ChloraPrep and draped with sterile towels.? Sterilely draped C-arm was brought over the operating field and sq picture of L4-and L5 vertebra and S1 AREA were delineated on the screen.? Point of interest were delineated as connection of superior articular process of L4 and L5 vertebra bilaterally with corresponding transverse processes as well as connection of the sacral alae bilaterally with superior articular process of S1.? The projection of the point of interest to the skin were injected with the small amount of local anesthetic lidocaine 2% 1-1.5 cc.? After that 22 gauge 3-1/2 inch spinal needle was driven sequentially to the points of interest in tunnel vision fashion. After needles gently contacted the bone at the point of interests the needle was injected with small amount of the contrast.? The injection of the contrast did not demonstrate any intravascular or intrathecal spread of the contrast.? After that injection of the? ropivacaine 0.5%-1cc was performed at each needle location.? Upon completion of the injections? needle was? removed and sterile Band-Aids were applied.? The? patient was awaken and taken outside of the operating room to recovery room where she recovered uneventfully.? She went home without immediate complications. (4) Sacroiliac joint pain: Code(s): M53.3 - Sacrococcygeal disorders, not elsewhere classified Plan Discussed interventional treatments for chronic low back pain. Patient is not candidate for SCS or PNS therapy due to potential interference with ICD pacer. Discussed diagnostic injections for potential lumbar medial branch RFA vs therapeutic injections. Schedule Bilateral Diagnostic L3-L4 DR L5 MBBs with local and fluoroscopy. All questions and concerns have been answered and patient agreed with the plan. Follow up after injections and sooner if needed. Anticoagulation: Patient on anticoagulation (Eliquis) and instructions given on when to pause with prescribing physician permission. Justification for interventional therapy: ? Patient with average pain > 6/10 ? Patient has exhausted conservative therapy, opioid medication, gabapentin, Tylenol, PT The risks, consequences, alternatives, and benefits of various treatment options were discussed with the patient in great detail, including conservative management, injections and procedures. Orders: Orders [place] guidance in treatment room 09/24/23 M47.816 - Spondylosis without myelopathy or radiculopathy, lumbar region Coding Level of Care Code Procedure Only Diagnoses Scoliosis (and kyphoscoliosis), idiopathic M41.20 Lumbar degenerative disc disease M51.36 Lumbar spondylosis M47.816 Sacroiliac joint pain M53.3
[2023-09-24 15:42] VITALS: BP 108/70; BP 108/72; PULSE 80; PULSE 83; RESP 14; O2SAT 95; O2SAT 96; BMI 30.3
== END 2023-09-24 15:30 | disposition home or self-care (01) ==
LOC: HO.PMCPRC 14:29
PROVIDERS: PCP Family Medicine; Visit Provider Anesthesiology
DX: M47.816 Spondylosis without myelopathy or radiculopathy, lumbar region (principal)
CPT/HCPCS: 64493; 64494

== ENCOUNTER 2023-09-27 13:21 | Outpatient (AMB) | payer OTHER, MEDICAID, SELFPAY ==
--- NOTE | 2023-09-27 13:23 | MHC.OFFVIS ---
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 Barksdale. Patient reports 70% ongoing pain relief since procedure with improved daily functioning, mobility, range of motion, social interactions and sleep. Patient reports increased tolerance with prolonged standing, sitting or leaning forward (brushing her teeth or house chores) without significant discomfort. She continues to endorse difficulties with walking and holding heavy objections due to scoliosis and kyphosis in her back but reports significant increase in functioning since procedure. We reviewed therapeutic injections and lumbar medial branch RFA as next steps. Patient would like to discuss this with her family. Denies any recent cough, cold, infection, fever, any significant changes in her medical history, medications or recent hospitalizations. Past procedures: 09/24/23: Diagnostic Bilateral L3-L4 DR L5 MBB-70% pain relief >3 days PRIOR: Patient presents today for follow up for chronic low back pain. She was initially seen in our office last summer 2022 and underwent Neurosurgical evaluation. She was deemed non-surgical candidate at that time for thoracolumbar extensive scoliosis correction at her age. She was recommended to consider injections for low back pain with degenerative changes. Patient reports low back pain without radicular symptoms. She has difficulty to stand or sit upright due to scoliosis and chronic pain. She is interested to proceed with diagnostic lumbar medial branch blocks for potential therapeutic injections or lumbar spine RFA procedure. Currently, she is managing her pain with Suboxone, gabapentin, Tylenol, and heat therapy with continued symptoms. She completed PT 2 years ago with minimal improvement. Patient is not able to tolerate PT or HEP at this time due to significant low back pain. Pain is rated at 10/10. Denies any fever, abdominal or groin pain, foot drop, weakness, bladder or bowel incontinence or saddle anesthesia. PRIOR: Patient is a pleasant 67 years old female with complex medical and surgical history presents today neck to lower back pain. Back pain has been chronic for her and has been progressively getting worse with activities, with walking (3-5 min), standing (10 min), bending, or changing positions. She reports history of spine injections in [place] that were helpful at first but no longer beneficial. She has completed formal physical therapy 2 years ago and has continued home exercise program and strength training but reports due to cardiac issues and significant back pain related to scoliosis is not able to exercise. Currently takes gabapentin 1000 mg TID, Tylenol 1000 mg TID prn, Ibuprofen with partial symptom relief. Lidocaine patches were ineffective. Patient is also takes Suboxone ([place]) with previous history of Vicodin addiction, reports all prescription PO use, never street or injection use. Patient with Afib, has pacer in ICD pacer in place since 1995 and replaced in 2002 and on Eliquis 5 mg BID. Reports she has been told osteoporosis but cannot recall if she had bone scan. Patient's back pain is mostly axial, radiating into right upper buttock and lateral right hip and localized tenderness in the projection of right sacroiliac joint area. Pain is described as constant aching, cramping and stabbing. SLR testing is negative bilaterally. Patient has limited lumbar range of motion or movement with significant scoliosis and kyphosis which causes her small lung capacity and dyspnea. Pain affects her daily activities, functioning, sleep, mood and quality of life. Denies any fever, abdominal or groin pain, bladder or bowel incontinence or saddle anesthesia. [facility] Medical History Scoliosis (and kyphoscoliosis), idiopathic PITTS (dyspnea on exertion) Restrictive lung disease Atherosclerotic cardiovascular disease Persistent atrial fibrillation Chronic heart failure with preserved ejection fraction Ventricular tachycardia Cardiac defibrillator in place Surgical History Status post mitral valve replacement with bioprosthetic valve Status post aorto-coronary artery bypass graft S/P transcatheter mitral valve replacement (TMVR) History of open heart surgery Family History Mother No problems noted. Father No problems noted. Social History Alcohol intake: never Patient Tobacco Use Status: Former Tobacco user Review of Systems Const All systems reviewed & are unremarkable except as noted in HPI and below Neuro Denies Sensory deficit (Neuro) Physical Exam Vital Signs: Last Vital Signs Pulse 65 09/27/23 13:27 BP 122/76 09/27/23 13:27 Pulse Ox 96 09/27/23 13:27 Oxygen Delivery Method Room Air 09/27/23 13:27 BMI result Body Mass Index 29.3 General: Appears afebrile. Alert and oriented. Mood and affect appropriate. Follows and participates in conversation appropriately. Respiratory effort is unlabored. No cough. Able to transition from sit to stand unassisted. Uses cane with ambulation. Able to stand on toes and heels but tends to become unsteady when walking on toes or heels. Back/Spine/Pelvis Other: Minimal pain with lumbar extension and flexion. Facet loading is positive bilaterally. 2+ pedal pulses bilaterally. Vandana sign positive on the right, Ismael?s, Pelvic compression and Stinchfield tests are positive on the right. No groin pain with I/E hip rotations. Cervical Spine: loss of normal cervical lordosis, pain with cervical ROM and No Cervical spine tenderness Thoracic/Lumbar Spine: thoracic and lumbar spine normal to inspection, No Thoracic/lumbar spine scar(s), Lasegue's sign negative, straight leg raise negative bilaterally, kyphosis, pain with thoraco-lumbar ROM, paraspinal muscle tenderness, Thoracic/lumbar scoliosis, No thoracic spinal tenderness and lumbar spinal tenderness Sacroiliac joints: on the right tender to palpation and on the left nontender Neuro General: moves all extremities, Normal light touch and pain sensation and CN's II-XI intact bilaterally Gait exam (Neuro): Antalgic gait present and Assistive device used Motor exam (neuro): 5/5 motor strength present throughout, no tremor noted and Motor abnormalities not present Sensory Exam: No Sensory deficit (Neuro) Assessment & Plan Assessment & Plan (1) Scoliosis (and kyphoscoliosis), idiopathic: Comment: PATIENT HAS CHRONIC MODERATELY SEVERE SCOLIOSIS, CHRONIC BACK DISCOMFORT FOR WHICH SHE IS BEING TREATED. Code(s): M41.20 - Other idiopathic scoliosis, site unspecified (2) Lumbar degenerative disc disease: Code(s): M51.36 - Other intervertebral disc degeneration, lumbar region (3) Lumbar spondylosis: Code(s): M47.816 - Spondylosis without myelopathy or radiculopathy, lumbar region (4) Sacroiliac joint pain: Code(s): M53.3 - Sacrococcygeal disorders, not elsewhere classified Plan Patient is status post bilateral diagnostic lumbar medial branch blocks is ongoing 70% pain relief since procedure 3 days ago. We reviewed stimulative vs ablative procedures and therapeutic injections as next steps. Patient is not interested in neuromodulation with SCS or PNS trials and implants. She would like to discuss next steps for a longer term pain relief with her family. Patient is aware we will plan for repeat diagnostic injections for potential lumbar medial branch RFA vs therapeutic injections. All questions and concerns have been answered and patient agreed with the plan. Follow up as needed. Coding Level of Care Code Est Pt Level 3 (73194) Diagnoses Scoliosis (and kyphoscoliosis), idiopathic M41.20 Lumbar degenerative disc disease M51.36 Lumbar spondylosis M47.816 Sacroiliac joint pain M53.3
[2023-09-27 13:27] VITALS: BP 122/76; PULSE 65; O2SAT 96; BMI 29.3
== END 2023-09-27 13:56 | disposition home or self-care (01) ==
PROVIDERS: PCP Family Medicine; Visit Provider Nurse Practitioner Family
DX: M41.20 Other idiopathic scoliosis, site unspecified (principal); M51.36 Other intervertebral disc degeneration, lumbar region; M47.816 Spondylosis without myelopathy or radiculopathy, lumbar region; M53.3 Sacrococcygeal disorders, not elsewhere classified
CPT/HCPCS: 99213

== ENCOUNTER → 2023-09-27 13:21 | Outpatient (BNVA) | payer OTHER, MEDICAID, SELFPAY | PROVIDERS: PCP Family Medicine; Visit Provider Nurse Practitioner Family | DX: M41.20 Other idiopathic scoliosis, site unspecified (principal); M51.36 Other intervertebral disc degeneration, lumbar region; M47.816 Spondylosis without myelopathy or radiculopathy, lumbar region; M53.3 Sacrococcygeal disorders, not elsewhere classified | CPT/HCPCS: 99212 ==

== ENCOUNTER 2023-10-02 13:09 | Outpatient (AMB) | payer OTHER, MEDICAID, SELFPAY ==
--- NOTE | 2023-10-02 13:12 | MHC.OFFVIS ---
Intake Vital Signs 10/02/23 13:13 Height 5 ft Weight 153 lb 7.068 oz BMI 30.0 BP 120/74 Blood Pressure Location Lt brachial Position Sitting Intake Visit Reasons: follow up w/device check Manager Adult Required: No Allergies No Known Allergies Allergy (Verified 10/02/23 13:15) Medication List - Last Reconciled 10/02/23 by Martina Abad NP apixaban (Eliquis) 5 mg PO BID buprenorphine-naloxone 8-2 mg 1.5 tabs sublingual DAILY fluoxetine 20 mg PO DAILY gabapentin 100 mg PO TID gabapentin 800 mg PO TID moxifloxacin 0.5% 1 drp ophthalmic-Right DAILY sotalol 60 mg PO BID torsemide 40 mg (2 x 20 mg) PO BID HPI HPI Comments History of Present Illness Details 67-year-old female presents today for a follow-up. She reports she has been doing well. She has a medical history of restrictive lung disease, DVT on eliquis, persistent atrial fibrillation, HFpEF, mitral valve replacement, and ventricular tachycardia. History of V-Tach causing cardiac arrest in 1995 and had an ICD placed. She states her shortness of breath is chronic and is about the same as it has been. She denies chest pains, palpitations, dizziness, or swelling in her legs. [facility] Medical History Scoliosis (and kyphoscoliosis), idiopathic PITTS (dyspnea on exertion) Restrictive lung disease Atherosclerotic cardiovascular disease Persistent atrial fibrillation Chronic heart failure with preserved ejection fraction Ventricular tachycardia Cardiac defibrillator in place Surgical History Status post mitral valve replacement with bioprosthetic valve Status post aorto-coronary artery bypass graft S/P transcatheter mitral valve replacement (TMVR) History of open heart surgery Family History Mother No problems noted. Father No problems noted. Social History Alcohol intake: never Patient Tobacco Use Status: Former Tobacco user Review of Systems Const Denies chills, Denies fatigue, Denies fever(s), Denies frequent falls, Denies weakness, Denies weight gain and Denies weight loss ENT Denies dizziness Card Denies chest pain, Denies chest pain at rest, Denies chest pain with activity, Denies rapid heart rate, Denies pedal edema, Denies edema, Denies leg edema, Denies lightheadedness, Denies palpitations, Denies dyspnea, Denies dyspnea on exertion and Denies orthopnea Resp Denies cough, Denies dyspnea and Denies dyspnea on exertion GI Denies hematochezia and Denies change in stool character Musc Denies abnormal gait, Denies limited range of motion, Denies muscle cramps, Denies muscle weakness, Denies numbness, Denies radiating pain into limb, Denies stiffness and Denies tingling Neuro Denies abnormal gait, Denies dizziness, Denies frequent falls, Denies numbness, Denies tingling and Denies weakness Endo Denies fatigue and Denies palpitations Physical Exam Vital Signs: Last Vital Signs BP 120/74 10/02/23 13:13 BMI result Body Mass Index 30.0 Const General: healthy appearing and no acute distress Orientation/consciousness: patient oriented x3 HEENT Head: Yes normal to inspection Eyes General: appearance normal, both eyes and all related structures Neck Neck: Yes normal visual inspection Chest Chest palpation & inspection: normal inspection of the chest Resp Effort & Inspection: normal respiratory effort Auscultation: clear to auscultation bilaterally Cardio Jugular venous distension: no JVD Palpation: normal PMI Rate: regular rate Rhythm: regular rhythm Heart sounds: S1 normal heart sound present, S2 normal heart sound present, no click, no gallops, no murmurs and no rubs GI Inspection: Yes normal to inspection Palpation (GI): Soft to palpation Skin General skin exam: no rashes or lesions noted Neuro General: patient oriented x3 Extrem General: Yes normal to inspection Psych Appearance: grossly normal Office Procedures Cardiac Device Check Cardiac Device Check Details: [employer] ICD interrogated today. programmed to VVI mode. Battery life 15 years. Normal parameters. Alert to check RV lead [id number] Cardiac Device Check, single lead implantable defibrillator Procedure code (CPT) selection complete Assessment & Plan Assessment & Plan (1) ICD (implantable cardioverter-defibrillator) in place: Code(s): Z95.810 - Presence of automatic (implantable) cardiac defibrillator Plan: Had battery change 04/04/2023 at [facility] [place]. Current battery 15 years. Does remote monitoring every 3 months. (2) Atherosclerotic cardiovascular disease: Code(s): I25.10 - Atherosclerotic heart disease of [place] coronary artery without angina pectoris Plan: Cath 2019: LMCA: Normal. LAD: minimal irregularities. LCx: normal. RCA: normal. FONSECA graft that attaches to mid LAD - likely nonobstrucitive LAD. (3) Persistent atrial fibrillation: Code(s): I48.19 - Other persistent atrial fibrillation Plan: Rates been controled due to being on Sotalol for V-Tach. On eliquis 5mg BID. Last Cr 1.2. (4) Ventricular tachycardia: Comment: On sotalol for V-Tach. Rates have been controlled. No alerts on ICD. Code(s): I47.20 - Ventricular tachycardia, unspecified Plan: No alerts for v-tach on interogation. (5) Chronic heart failure with preserved ejection fraction: Code(s): I50.32 - Chronic diastolic (congestive) heart failure Plan: No signs of overload today. Daily weights and avoiding salt in diet. On toresemide. (6) S/P transcatheter mitral valve replacement (TMVR): Code(s): Z95.2 - Presence of prosthetic heart valve Plan: Bioprosthetic mitral valve functioning normal in last echocardiogram on 09/14/22. Stable. Infective endocarditis prophylaxis per protocol. Coding Level of Care Code Est Pt Level 4 (14641) Diagnoses ICD (implantable cardioverter-defibrillator) in place Z95.810 Atherosclerotic cardiovascular disease I25.10 Persistent atrial fibrillation I48.19 Ventricular tachycardia I47.20 Chronic heart failure with preserved ejection fraction I50.32 S/P transcatheter mitral valve replacement (TMVR) Z95.2 CPT Codes Cardiac Device Check - Cardiac Device 4: [id number] Cardiac Device Check, single lead implantable defibrillator ([id number])
[2023-10-02 13:13] VITALS: BP 120/74
== END 2023-10-02 14:11 | disposition home or self-care (01) ==
PROVIDERS: PCP Family Medicine; Visit Provider Nurse Practitioner
DX: I25.10 Atherosclerotic heart disease of native coronary artery without angina pectoris (principal); I48.19 Other persistent atrial fibrillation; I47.20 Ventricular tachycardia, unspecified; Z95.810 Presence of automatic (implantable) cardiac defibrillator; I50.32 Chronic diastolic (congestive) heart failure; Z95.2 Presence of prosthetic heart valve
CPT/HCPCS: 93282; 99214

== ENCOUNTER → 2023-10-02 13:09 | Outpatient (BNVA) | payer OTHER, MEDICAID, SELFPAY | PROVIDERS: PCP Family Medicine; Visit Provider Nurse Practitioner | DX: Z45.02 Encounter for adjustment and management of automatic implantable cardiac defibrillator (principal); I25.10 Atherosclerotic heart disease of native coronary artery without angina pectoris; I48.19 Other persistent atrial fibrillation; I47.20 Ventricular tachycardia, unspecified; I50.32 Chronic diastolic (congestive) heart failure; Z95.2 Presence of prosthetic heart valve | CPT/HCPCS: 99212 ==

== ENCOUNTER 2023-10-28 11:20 | Outpatient (AMB) | payer OTHER, MEDICAID, SELFPAY ==
--- NOTE | 2023-10-28 11:24 | A.OFFVIS_ITS ---
Intake Vital Signs 10/28/23 11:32 Height 5 ft Weight 142 lb 4 oz BMI 27.8 BP 124/70 Blood Pressure Location Lt brachial Position Sitting Respiration 14 Pulse 78 Pulse Source Pulse Oximeter Pulse Oximetry (%) 94 Oxygen Delivery Method Room Air Intake Visit Reasons: ELIQUIS DISCUSSION PRIOR TO DISCUSSION/ confirm Allergies No Known Allergies Allergy (Verified 10/02/23 13:15) HPI HPI Comments History of Present Illness Details Mirna is in my office today to discuss possibility of further treatment. She is very unfortunate 67 years old female who due to congestive heart failure was given pacemaker/defibrillator implantable. She received diagnostic bilateral L3-L4 does ramus L5 medial branch block with 70% pain relief for more than 3 days. She was offered steroid injections versus sprint PNS stimulation. However recently sprint withdrew there compatibility with pacemaker/defibrillator. Therefore it has no longer an option. I explained today in very long and detailed conversation side effects of steroid medications. I do not think steroid injections is a good option for this patient because she already has significant osteoporosis. Risks of diabetes, retention of the fluid, elevation of the blood pressure, development of depression, all discussed with the patient. Brochure of [employer]ro SCS was also given to the patient to read. I believe Nevro SCS on high-frequency mode will not be capable of stimulating the pacemaker/defibrillator and would not cause discharge of the defibrillator jolt on the patient's heart however it is usual procedure to invite the [employer] cash posting representative for pacemaker after the trial. If patient would like to go for Nevro SCS she would need to give us a call and we will schedule her for psychological evaluation. Past procedures: 09/24/23: Diagnostic Bilateral L3-L4 DR L5 MBB-70% pain relief >3 days PRIOR: Patient presents today for follow up for chronic low back pain. She was initially seen in our office last summer 2022 and underwent Neurosurgical evaluation. She was deemed non-surgical candidate at that time for thoracolumbar extensive scoliosis correction at her age. She was recommended to consider inj ections for low back pain with degenerative changes. Patient reports low back pain without radicular symptoms. She has difficulty to stand or sit upright due to scoliosis and chronic pain. She is interested to proceed with diagnostic lumbar medial branch blocks for potential therapeutic injections or lumbar spine RFA procedure. Currently, she is managing her pain with Suboxone, gabapentin, Tylenol, and heat therapy with continued symptoms. She completed PT 2 years ago with minimal improvement. Patient is not able to tolerate PT or HEP at this time due to significant low back pain. Pain is rated at 10/10. Denies any fever, abdominal or groin pain, foot drop, weakness, bladder or bowel incontinence or saddle anesthesia. PRIOR: Patient is a pleasant 67 years old female with complex medical and surgical history presents today neck to lower back pain. Back pain has been chronic for her and has been progressively getting worse with activities, with walking (3-5 min), standing (10 min), bending, or changing positions. She reports history of spine injections in [place] that were helpful at first but no longer beneficial. She has completed formal physical therapy 2 years ago and has continued home exercise program and strength training but reports due to cardiac issues and significant back pain related to scoliosis is not able to exercise. Currently takes gabapentin 1000 mg TID, Tylenol 1000 mg TID prn, Ibuprofen with partial symptom relief. Lidocaine patches were ineffective. Patient is also takes Suboxone ([place]) with previous history of Vicodin addiction, reports all prescription PO use, never street or injection use. Patient with Afib, has pacer in ICD pacer in place since 1995 and replaced in 2002 and on Eliquis 5 mg BID. Reports she has been told osteoporosis but cannot recall if she had bone scan. Patient's back pain is mostly axial, radiating into right upper buttock and lateral right hip and localized tenderness in the projection of right sacroiliac joint area. Pain is described as constant aching, cramping and stabbing. SLR testing is negative bilaterally. Patient has limited lumbar range of motion or movement with significant scoliosis and kyphosis which causes her small lung capacity and dyspnea. Pain affects her daily activities, functioning, sleep, mood and quality of life. Denies any fever, abdominal or groin pain, bladder or bowel incontinence or saddle anesthesia. [facility] Medical History Scoliosis (and kyphoscoliosis), idiopathic PITTS (dyspnea on exertion) Restrictive lung disease Atherosclerotic cardiovascular disease Persistent atrial fibrillation Chronic heart failure with preserved ejection fraction Ventricular tachycardia Cardiac defibrillator in place Surgical History Status post mitral valve replacement with bioprosthetic valve Status post aorto-coronary artery bypass graft S/P transcatheter mitral valve replacement (TMVR) History of open heart surgery Family History Mother No problems noted. Father No problems noted. Social History Alcohol intake: never Patient Tobacco Use Status: Former Tobacco user Review of Systems Const All systems reviewed & are unremarkable except as noted in HPI and below Neuro Denies Sensory deficit (Neuro) Physical Exam Vital Signs: Last Vital Signs Pulse 78 10/28/23 11:32 Resp 14 10/28/23 11:32 BP 124/70 10/28/23 11:32 Pulse Ox 94 10/28/23 11:32 Oxygen Delivery Method Room Air 10/28/23 11:32 BMI result Body Mass Index 27.8 General: Appears afebrile. Alert and oriented. Mood and affect appropriate. Follows and participates in conversation appropriately. Respiratory effort is unlabored. No cough. Able to transition from sit to stand unassisted. Uses cane with ambulation. Able to stand on toes and heels but tends to become unsteady when walking on toes or heels. Back/Spine/Pelvis Other: Minimal pain with lumbar extension and flexion. Facet loading is positive bilaterally. 2+ pedal pulses bilaterally. Vandana sign positive on the right, Ismael?s, Pelvic compression and Stinchfield tests are positive on the right. No groin pain with I/E hip rotations. Cervical Spine: loss of normal cervical lordosis, pain with cervical ROM and No Cervical spine tenderness Thoracic/Lumbar Spine: thoracic and lumbar spine normal to inspection, No Thoracic/lumbar spine scar(s), Lasegue's sign negative, straight leg raise negative bilaterally, kyphosis, pain with thoraco-lumbar ROM, paraspinal muscle tenderness, Thoracic/lumbar scoliosis, No thoracic spinal tenderness and lumbar spinal tenderness Sacroiliac joints: on the right tender to palpation and on the left nontender Neuro General: moves all extremities, Normal light touch and pain sensation and CN's II-XI intact bilaterally Gait exam (Neuro): Antalgic gait present and Assistive device used Motor exam (neuro): 5/5 motor strength present throughout, no tremor noted and Motor abnormalities not present Sensory Exam: No Sensory deficit (Neuro) Assessment & Plan Assessment & Plan (1) Scoliosis (and kyphoscoliosis), idiopathic: Code(s): M41.20 - Other idiopathic scoliosis, site unspecified (2) Lumbar degenerative disc disease: Code(s): M51.36 - Other intervertebral disc degeneration, lumbar region (3) Lumbar spondylosis: Code(s): M47.816 - Spondylosis without myelopathy or radiculopathy, lumbar region (4) Sacroiliac joint pain: Code(s): M53.3 - Sacrococcygeal disorders, not elsewhere classified Plan Patient is status post bilateral diagnostic lumbar medial branch blocks is ongoing 70% pain relief since procedure 3 days ago. With pacemaker/defibrillator on board radiofrequency ablation, sprint PNS, other PNS modalities are not very good option for this patient. In terms of neuromodulation only Nevro SCS and intrathecal pain pump could potentially be helpful for the patient. [employer] brochure was given to the patient to read. The side effects of the steroid medications and steroid injections were carefully explained to the patient. I also do not believe that steroid injections will do good for this patient however we I do not mind to try if she decides that this is the modalities she wants to follow. Patient Instructions: I here by testify that I spent 32 minutes in conversation with this patient as well as planning her care and organizing this note. Coding Level of Care Code Est Pt Level 4 (63881) Diagnoses Scoliosis (and kyphoscoliosis), idiopathic M41.20 Lumbar degenerative disc disease M51.36 Lumbar spondylosis M47.816 Sacroiliac joint pain M53.3
[2023-10-28 11:32] VITALS: BP 124/70; PULSE 78; RESP 14; O2SAT 94; BMI 27.8
== END 2023-10-28 12:02 | disposition home or self-care (01) ==
PROVIDERS: PCP Family Medicine; Visit Provider Anesthesiology
DX: M41.20 Other idiopathic scoliosis, site unspecified (principal); M51.36 Other intervertebral disc degeneration, lumbar region; M47.816 Spondylosis without myelopathy or radiculopathy, lumbar region; M53.3 Sacrococcygeal disorders, not elsewhere classified
CPT/HCPCS: 99214

== ENCOUNTER → 2023-10-28 11:20 | Outpatient (BNVA) | payer OTHER, MEDICAID, SELFPAY | PROVIDERS: PCP Family Medicine; Visit Provider Anesthesiology | DX: M41.20 Other idiopathic scoliosis, site unspecified (principal); M51.36 Other intervertebral disc degeneration, lumbar region; M47.816 Spondylosis without myelopathy or radiculopathy, lumbar region; M53.3 Sacrococcygeal disorders, not elsewhere classified | CPT/HCPCS: 99212 ==

== ENCOUNTER 2023-11-11 12:31 | Emergency (ER) | payer OTHER, MEDICAID, SELFPAY ==
[2023-11-11 13:19] VITALS: BP 119/56; PULSE 63; RESP 16; TEMP 36.4; O2SAT 98; BMI 28.3
--- NOTE | 2023-11-11 13:19 | ED.GENADULT ---
HPI - General Adult General Chief complaint: Recheck/Abnormal Lab/Rx Stated complaint: abd labs Source: patient Mode of arrival: ambulatory Limitations: no limitations History of Present Illness HPI narrative: Patient is a 67 year old assigned female at with a history of CHF and atrial fib presenting to the emergency department today with abnormal lab works. Patient states that she was seen at an urgent care on 11/08/2023 and was called today told that her kidney function and potassium results were abnormal. Patient states that she is having low back / flank pain. Patient denies any dizziness, lightheadedness, abdominal pain, nausea, vomiting, fever, chills, blurry vision, double vision, loss of vision, chest pain, difficulty breathing, shortness of breath, night sweats, pain with urination, increased urinary frequency, increased urinary urgency, blood in her urine or stool, syncope or a near syncopal episode, recent trauma or falls, bowel incontinence, bladder incontinence, bowel retention, bladder retention, or any other complaints at this time. Onset (ago): day(s) (3) Location: back Severity: mild Severity scale (1-10): 3 Quality: aching and constant Pain Consistency: constant Relieving factors: none Exacerbating factors: none Associated symptoms: denies other symptoms Treatments prior to arrival: none Related Data Home Medications Medication Instructions Recorded Confirmed apixaban 5 mg tablet (Eliquis) 5 mg PO BID 08/15/22 01/03/23 buprenorphine 8 mg-naloxone 2 mg 1.5 tab sublingual DAILY 08/15/22 01/03/23 sublingual tablet fluoxetine 20 mg capsule 20 mg PO DAILY 08/15/22 01/03/23 gabapentin 100 mg capsule 100 mg PO TID 08/15/22 01/03/23 moxifloxacin 0.5 % eye drops 1 drp ophthalmic-Right DAILY 08/15/22 01/03/23 sotalol 120 mg tablet 60 mg PO BID 08/15/22 01/03/23 gabapentin 800 mg tablet 800 mg PO TID 09/03/23 Previous Rx's Medication Instructions Recorded torsemide 20 mg tablet 40 mg (2 x 20 mg) PO BID #120 tabs 06/17/23 Allergies Allergy/AdvReac Type Severity Reaction Status Date / Time No Known Allergies Allergy Verified 11/11/23 13:19 Review of Systems Constitutional: Constitutional: Reports no additional constitutional complaints, Denies chills, Denies fever(s) and Denies night sweats Eyes: Eyes: Reports no additional eye complaints, Denies blurry vision, Denies change in vision, Denies diplopia, Denies eye discharge, Denies loss of vision and Denies eye pain ENT: Denies dizziness Cardiovascular: Cardiovascular: Reports no additional cardiovascular complaints, Denies chest pain, Denies lightheadedness, Denies Loss of Consciousness and Denies dyspnea Respiratory: Respiratory: Reports no additional respiratory complaints and Denies dyspnea Gastrointestinal: Gastrointestinal: Reports no additional gastrointestinal complaints, Denies abdominal pain, Denies melena, Denies hematochezia, Denies change in bowel habits and Denies change in stool character Genitourinary: Genitourinary: Denies hematuria, Denies urinary frequency, Denies dysuria, Reports flank pain, Denies urinary incontinence, Denies urinary hesitancy and Denies urinary urgency Musculoskeletal: Musculoskeletal: Reports no additional musculoskeletal complaints, Reports back pain, Denies numbness and Denies tingling Neurologic: Denies dizziness, Denies loss of vision, Denies numbness and Denies tingling Psychiatric: Psychiatric: Reports no additional psychiatric complaints Endocrine: Endocrine: Reports no additional endocrine complaints Hematologic/Lymphatic: Hematologic/Lymphatic: Reports no additional hematologic/lymphatic complaints Allergic/Immunologic: Allergic/Immunologic: Reports no additional allergic/immunologic complaints [facility] Past Medical History Attestation statement: The following information was validated with the patient. Source: old records reviewed and nursing notes reviewed Medical History Scoliosis (and kyphoscoliosis), idiopathic PITTS (dyspnea on exertion) Restrictive lung disease Atherosclerotic cardiovascular disease Persistent atrial fibrillation Chronic heart failure with preserved ejection fraction Ventricular tachycardia Cardiac defibrillator in place Surgical History Status post mitral valve replacement with bioprosthetic valve Status post aorto-coronary artery bypass graft S/P transcatheter mitral valve replacement (TMVR) History of open heart surgery Family History Family History Mother No problems noted. Father No problems noted. Social History Social History Alcohol intake: never Patient Tobacco Use Status: Former Tobacco user Advance Directives: No Physical Exam ED Vital Signs: Vital Signs - 24 hr 11/11/23 18:28 Temperature 98.3 F Pulse Rate 59 Respiratory Rate 20 Blood Pressure 102/54 L Pulse Oximetry 94 Oxygen Delivery Method Room Air BMI result Body Mass Index 28.3 Const General: cooperative, no acute distress, alert and awake Nutritional Appearance: well nourished Orientation/consciousness: patient oriented x3 Limitations: no limitations HENMT Head: Yes normal to inspection and Yes atraumatic Ears: hearing grossly normal bilaterally and external ears normal General nose exam: Normal external nose present, no nasal discharge noted and no epistaxis Face and sinus: Yes normal facial exam, No abrasion and No laceration Mouth: Normal oral and palatal mucosa present, no drooling and no muffled voice Eyes General: appearance normal, both eyes and all related structures Periorbital: periorbital findings normal Eyelids: Yes eyelids normal Conjunctivae: conjunctivae normal Pupils: Equal, round and reactive pupils present EOM: EOMs intact bilaterally Neck Neck: Yes normal visual inspection, Yes full ROM and Yes no lymphadenopathy Chest Chest palpation & inspection: normal inspection of the chest Resp Effort & Inspection: normal respiratory effort and able to speak in complete sentences GI Inspection: Yes normal to inspection Neuro General: patient oriented x3 and moves all extremities Cranial nerves: Yes Equal, round and reactive pupils present Cognition (Neuro): normal cognition Motor exam (neuro): 5/5 motor strength present throughout Sensory Exam: Normal double simultaneous stimulation for sensation Coordination: [id number] test normal Extrem General: Yes normal to inspection, Yes full ROM and Yes capillary refill normal Psych Appearance: grossly normal Mental Status: mental status grossly normal Affect: normal affect Attitude: cooperative Thought process: Normal thought process present Thought content: Normal thought content present Insight: Good insight present (Psych) Course Course Course Narrative: RME performed by Hoa Gilbert PA-C. Patient is a 67 year old assigned female at presenting to the emergency department with decreased potassium and kidney function after a visit to the urgent care. Detailed physical exam and review of systems are deferred to the line ordering clinician. Labs and swabs ordered. Patient placed back in the waiting room pending room availability and results. Medical Decision Making Medical Decision Making MDM Narrative: Patient is a 67 year old assigned female at with a history of CHF and atrial fib presenting to the emergency department today with low back pain, flank pain, and concerns of abnormal labs. Patient's limited physical exam performed in triage was unremarkable. Patient's blood work showed a potassium of 3.1 however, the rest of her results were unremarkable. Patient's EKG was unremarkable. Patient left the department without completing treatment. Patient left the department before myself or any of the other emergency department clinicians could explain or review physical exam findings, test results, need or lack there of for additional testing, treatment options, or a treatment plan. Differential Diagnosis Differential Diagnoses: The differential diagnosis associated with the presentation includes Hypokalemia Flank pain Back pain Admission/Observation Consideration of admission/observation: Escalation of care including admission/observation considered Patient would have been admitted to the hospital had her work up had any findings where hospital admission was appropriate, her clinical presentation warranted hospital admission, and she hadn't left the department before need or possibility of admission could be discussed. Lab Data [facility] Lab Attestation statement: I reviewed the patient's lab results. My interpretation of these results are in the [facility] Rationale portion of this note. 11/11/23 14:21 11/11/23 14:21 Labs: Lab Results 11/11/23 Range/Units 14:21 WBC 8.6 (4.8-10.8) X10*3/uL RBC 5.06 (4.20-5.50) X10*6/uL Hgb 15.1 (12.0-16.0) g/dl Hct 45.5 (37.0-47.0) % MCV 89.9 (80.0-98.0) fL MCH 29.8 (27.0-33.0) pg MCHC 33.2 (31.0-35.0) g/dl RDW 12.9 (11.0-16.0) % Plt Count 260 (160-400) X10*3/uL MPV 10.2 (9.4-12.3) fL Immature Gran % (Auto) 0.2 (0.0-0.4) % Neut % (Auto) 72.5 (45-73) % Lymph % (Auto) 16.1 L (20-40) % Whitfield % (Auto) 8.6 (2-11) % Eos % (Auto) 2.1 (0-4) % Baso % (Auto) 0.5 (0-2) % Lymph # (Auto) 1.4 (1.2-4.9) X10*3/uL Whitfield # (Auto) 0.7 (0.1-1.2) X10*3/uL Eos # (Auto) 0.2 (0.0-0.4) X10*3/uL Baso # (Auto) 0.0 (0.0-0.2) X10*3/uL Abs Immat Gran (auto) 0.02 (0.00-0.03) X10*3/uL Absolute Neuts (auto) 6.2 (2.0-8.3) x10*3/uL Absolute Nucleated RBC 0.000 (0.0-0.012) X10*3/uL Nucleated RBC % (auto) 0.0 (0.0-0.2) /100WBC Sodium 140 (135-145) mmol/L Potassium 3.1 L (3.3-5.1) mmol/L Chloride 94 L (96-108) mmol/L Carbon Dioxide 30 H (22-29) mmol/L Anion Gap 18 (12-20) BUN 15 (9-16) mg/dL Creatinine 1.09 (0.5-1.4) mg/dL Estim Creat Clear Calc 42.3 Estimated GFR 50 Random Glucose 107 (60-115) mg/dL Calcium 10.1 (8.4-10.2) mg/dL Magnesium 1.9 (1.6-2.6) mg/dL Total Bilirubin 0.5 (0.0-1.0) mg/dL AST 23 (5-31) U/L ALT 9 (0-31) U/L Alkaline Phosphatase 76 (39-117) U/L Troponin I High Sens 4.2 (<3.5-17.0) ng/L Total Protein 8.0 (6.5-8.0) g/dL Albumin 4.4 (3.5-5.0) g/dL Influenza Type A (PCR) NEGATIVE (Negative) Influenza Type B (PCR) NEGATIVE (Negative) RSV RNA Qual (PCR) NEGATIVE (Negative) SARS-CoV-2 RNA (RT-PCR) NEGATIVE (Negative) Independent Interpretation I performed an independent interpretation of an: EKG Interpretation: Vent. Rate: 076 BPM Atrial Rate: 000 BPM P-R Int: 000 ms QRS Dur: 106 ms QT Int: 428 ms P-R-T Axes: 000 077 -59 degrees QTc Int: 481 ms Atrial fibrillation with occasional atrial-paced complexes and with premature ventricular or aberrantly conducted complexes ST & T wave abnormality, consider inferior ischemia ST & T wave abnormality, consider anterolateral ischemia Prolonged QT Abnormal ECG No previous ECGs available Electronically Signed By:BRENDAN DONG Dictated By: Brendan Dong MD Signed By: Electronically signed by Brendan Dong MD 11/11/23 [id number] Discharge Plan Discharge Clinical Impression: Hypokalemia, Back pain, Flank pain Patient Disposition: Left W/O Completing Treatment Prescriptions: No Action torsemide 20 mg tablet 40 mg PO BID Qty: 120 6RF gabapentin 100 mg capsule 100 mg PO TID fluoxetine 20 mg capsule 20 mg PO DAILY buprenorphine-naloxone 8-2 mg tablet, sublingual 1.5 tab sublingual DAILY moxifloxacin 0.5 % drops 1 drp ophthalmic-Right DAILY Eliquis 5 mg tablet 5 mg PO BID sotalol 120 mg tablet 60 mg PO BID gabapentin 800 mg tablet 800 mg PO TID Discharge Date/Time: 11/12/23 00:13
--- NOTE | 2023-11-11 13:20 | ECG_ITS ---
Test Reason : ABNORMAL LABS Blood Pressure : / mmHG Vent. Rate : 076 BPM Atrial Rate : 000 BPM P-R Int : 000 ms QRS Dur : 106 ms QT Int : 428 ms P-R-T Axes : 000 077 -59 degrees QTc Int : 481 ms Atrial fibrillation with occasional atrial-paced complexes and with premature ventricular or aberrantly conducted complexes ST & T wave abnormality, consider inferior ischemia ST & T wave abnormality, consider anterolateral ischemia Prolonged QT Abnormal ECG No previous ECGs available Referred By: Hoa Gilbert Electronically Signed By:BRENDAN DONG
[2023-11-11 14:33] LABS: MANUAL DIFF FLAG NO
[2023-11-11 14:34] LABS: Basophils Percent Auto 0.5 % (0-2); Eosinophils Absolute Auto 0.2 X10*3/uL (0.0-0.4); Eosinophils Percent Auto 2.1 % (0-4); Hematocrit 45.5 % (37.0-47.0); Hemoglobin 15.1 g/dl (12.0-16.0); Imm Gran Abs Auto 0.02 X10*3/uL (0.00-0.03); Imm Gran Pct Auto 0.2 % (0.0-0.4); Lymphocytes Absolute Auto 1.4 X10*3/uL (1.2-4.9); Lymphocytes Percent Auto 16.1 % (20-40); Mean Corpuscular HGB Conc 33.2 g/dl (31.0-35.0); Mean Corpuscular Hemoglobin 29.8 pg (27.0-33.0); Mean Corpuscular Volume 89.9 fL (80.0-98.0); Mean Platelet Volume 10.2 fL (9.4-12.3); Monocytes Absolute Auto 0.7 X10*3/uL (0.1-1.2); Monocytes Percent Auto 8.6 % (2-11); Neutrophils Absolute Auto 6.2 x10*3/uL (2.0-8.3); Neutrophils Percent Auto 72.5 % (45-73); Platelet Count 260 X10*3/uL (160-400); Red Blood Count 5.06 X10*6/uL (4.20-5.50); Red Cell Distribution Width 12.9 % (11.0-16.0); White Blood Count 8.6 X10*3/uL (4.8-10.8)
[2023-11-11 14:53] LABS: Chloride 94 mmol/L (96-108); Potassium 3.1 mmol/L (3.3-5.1); Sodium 140 mmol/L (135-145)
[2023-11-11 14:56] LABS: Troponin-I High Sensitivity 4.2 ng/L (<3.5-17.0)
[2023-11-11 15:09] LABS: Alanine Aminotransferase 9 U/L (0-31); Albumin Level 4.4 g/dL (3.5-5.0); Alkaline Phosphatase 76 U/L (39-117); Anion Gap 18 (12-20); Aspartate Amino Transferase 23 U/L (5-31); Bilirubin Total 0.5 mg/dL (0.0-1.0); Blood Urea Nitrogen 15 mg/dL (9-16); Calcium 10.1 mg/dL (8.4-10.2); Carbon Dioxide 30 mmol/L (22-29); Creatinine Clr Calc Pharmacy 42.3; Estimated Glomerular Filt Rate 50; Glucose Random 107 mg/dL (60-115); Magnesium 1.9 mg/dL (1.6-2.6)
[2023-11-11 15:19] LABS: Influenza A PCR NEGATIVE (Negative); Influenza B PCR NEGATIVE (Negative); Resp Syncy Virus RNA Qual PCR NEGATIVE (Negative); SARS COV2 PCR INHOUSE NEGATIVE (Negative)
[2023-11-11 18:28] VITALS: BP 102/54; PULSE 59; RESP 20; TEMP 36.8; O2SAT 94
--- NOTE | 2023-11-12 15:49 | PC.NURSE ---
I attempted to call Mirna about her visit to the ED yesterday. There was no answer, I left a message for her to call me back. She had left before completing treatement.
== END 2023-11-12 00:13 | disposition left against medical advice (07) ==
PROVIDERS: Physician Assistant Medical; Emergency Provider Emergency Medicine; PCP Registered Nurse
DX: E87.6 Hypokalemia (principal); M54.50 Low back pain, unspecified; R10.9 Unspecified abdominal pain; I50.32 Chronic diastolic (congestive) heart failure; I48.19 Other persistent atrial fibrillation; Z11.52 Encounter for screening for COVID-19; Z20.828 Contact with and (suspected) exposure to other viral communicable diseases
CPT/HCPCS: 0241U; 36415; 80053; 83735; 84484; 85025; 93005; 99283

== ENCOUNTER → 2023-11-11 13:20 | Outpatient (BNV) | payer OTHER, MEDICAID, SELFPAY | PROVIDERS: PCP Registered Nurse; Visit Provider Internal Medicine | DX: I48.91 Unspecified atrial fibrillation (principal); I45.81 Long QT syndrome | CPT/HCPCS: 93010 ==

== ENCOUNTER 2024-01-21 13:28 | Outpatient (AMB) | payer OTHER, MEDICAID, SELFPAY ==
--- NOTE | 2024-01-21 13:31 | MHC.OFFVIS ---
Vital Signs 01/21/24 13:34 Height 5 ft Weight 150 lb BMI 29.3 BP 116/67 Blood Pressure Location Lt brachial Position Sitting Pulse 82 Pulse Source Pulse Oximeter Pulse Oximetry (%) 99 Oxygen Delivery Method Room Air Intake Visit Reasons: PROCEDURE DISCUSSION Intake Note: Pain today 04/04 Phlebotomy Instructor Required: No Accompanied by: Self / Same As Patient Allergies No Known Allergies Allergy (Verified 01/21/24 13:35) HPI Comments Details: Patient presents today to discuss potential lumbar medial branch RFA vs SCS trial and implant procedures. Patient reports worsening of chronic low back pain with limited lumbar range of motion or movement with significant scoliosis, kyphosis and degenerative changes. She underwent diagnostic medial branch blocks earlier this year with good results. Patient is also interested to discuss her concerns with SCS representatives given pacemaker/defibrillator in place. Unfortunately, SCS reps are not present today. Patient presents in right lower arm cast due to recent right lower arm fracture last when she tripped and fell on the right side. She was seen in ER in [place] and is scheduled to undergo surgery tomorrow. Denies any recent cough, cold, infection, fever, or any other significant changes in her medical history, medications or recent hospitalizations. PRIOR Dr. Barksdale 10/28/23: Mirna is in my office today to discuss possibility of further treatment. She is very unfortunate 67 years old female who due to congestive heart failure was given pacemaker/defibrillator implantable. She received diagnostic bilateral L3-L4 does ramus L5 medial branch block with 70% pain relief for more than 3 days. She was offered steroid injections versus sprint PNS stimulation. However recently sprint withdrew there compatibility with pacemaker/defibrillator. Therefore it has no longer an option. I explained today in very long and detailed conversation side effects of steroid medications. I do not think steroid injections is a good option for this patient because she already has significant osteoporosis. Risks of diabetes, retention of the fluid, elevation of the blood pressure, development of depression, all discussed with the patient. Brochure of [employer] SCS was also given to the patient to read. I believe [employer] SCS on high-frequency mode will not be capable of stimulating the pacemaker/defibrillator and would not cause discharge of the defibrillator jolt on the patient's heart however it is usual procedure to invite the [employer] patient accounting representative for pacemaker after the trial. If patient would like to go for [employer] SCS she would need to give us a call and we will schedule her for psychological evaluation. Past procedures: 09/24/23: Diagnostic Bilateral L3-L4 DR L5 MBB-70% pain relief >3 days PRIOR: Patient presents today for follow up for chronic low back pain. She was initially seen in our office last summer 2022 and underwent Neurosurgical evaluation. She was deemed non-surgical candidate at that time for thoracolumbar extensive scoliosis correction at her age. She was recommended to consider injections for low back pain with degenerative changes. Patient reports low back pain without radicular symptoms. She has difficulty to stand or sit upright due to scoliosis and chronic pain. She is interested to proceed with diagnostic lumbar medial branch blocks for potential therapeutic injections or lumbar spine RFA procedure. Currently, she is managing her pain with Suboxone, gabapentin, Tylenol, and heat therapy with continued symptoms. She completed PT 2 years ago with minimal improvement. Patient is not able to tolerate PT or HEP at this time due to significant low back pain. Pain is rated at 10/10. Denies any fever, abdominal or groin pain, foot drop, weakness, bladder or bowel incontinence or saddle anesthesia. PRIOR: Patient is a pleasant 67 years old female with complex medical and surgical history presents today neck to lower back pain. Back pain has been chronic for her and has been progressively getting worse with activities, with walking (3-5 min), standing (10 min), bending, or changing positions. She reports [place] that were helpful at first but no longer beneficial. She has completed formal physical therapy 2 years ago and has continued home exercise program and strength training but reports due to cardiac issues and significant back pain related to scoliosis is not able to exercise. Currently takes gabapentin 1000 mg TID, Tylenol 1000 mg TID prn, Ibuprofen with partial symptom relief. Lidocaine patches were ineffective. Patient is also takes Suboxone ([place]) with previous history of Vicodin addiction, reports all prescription PO use, never street or injection use. Patient with Afib, has pacer in ICD pacer in place since 1995 and replaced in 2002 and on Eliquis 5 mg BID. Reports she has been told osteoporosis but cannot recall if she had bone scan. Patient's back pain is mostly axial, radiating into right upper buttock and lateral right hip and localized tenderness in the projection of right sacroiliac joint area. Pain is described as constant aching, cramping and stabbing. SLR testing is negative bilaterally. Patient has limited lumbar range of motion or movement with significant scoliosis and kyphosis which causes her small lung capacity and dyspnea. Pain affects her daily activities, functioning, sleep, mood and quality of life. Denies any fever, abdominal or groin pain, bladder or bowel incontinence or saddle anesthesia. [facility] Medical History Scoliosis (and kyphoscoliosis), idiopathic PITTS (dyspnea on exertion) Restrictive lung disease Atherosclerotic cardiovascular disease Persistent atrial fibrillation Chronic heart failure with preserved ejection fraction Ventricular tachycardia Cardiac defibrillator in place Surgical History Status post mitral valve replacement with bioprosthetic valve Status post aorto-coronary artery bypass graft S/P transcatheter mitral valve replacement (TMVR) History of open heart surgery Family History Mother No problems noted. Father No problems noted. Social History Alcohol intake: never Patient Tobacco Use Status: Former Tobacco user Review of Systems Const All systems reviewed & are unremarkable except as noted in HPI and below Physical Exam Vital Signs: Last Vital Signs Pulse 82 01/21/24 13:34 BP 116/67 01/21/24 13:34 Pulse Ox 99 01/21/24 13:34 Oxygen Delivery Method Room Air 01/21/24 13:34 BMI result Body Mass Index 29.3 General: Appears afebrile. Alert and oriented. Mood and affect appropriate. Follows and participates in conversation appropriately. Respiratory effort is unlabored. No cough. Able to transition from sit to stand unassisted. Uses cane with ambulation. Able to stand on toes and heels but tends to become unsteady when walking on toes or heels. Back/Spine/Pelvis Other: Limited lumbar ROM due to moderate pain lumbar extension and flexion. Facet loading is positive bilaterally. 2+ pedal pulses bilaterally. Vandana sign positive on the right, Isamel?s, Pelvic compression and Stinchfield tests are positive on the right. No groin pain with I/E hip rotations. Cervical Spine: loss of normal cervical lordosis, pain with cervical ROM and No Cervical spine tenderness Thoracic/Lumbar Spine: thoracic and lumbar spine normal to inspection, No Thoracic/lumbar spine scar(s), Lasegue's sign negative, straight leg raise negative bilaterally, kyphosis, pain with thoraco-lumbar ROM, paraspinal muscle tenderness, thoraco-lumbar ROM limited, Thoracic/lumbar scoliosis, No thoracic spinal tenderness and lumbar spinal tenderness Sacroiliac joints: on the right tender to palpation and on the left nontender Extrem General: Yes capillary refill normal, Yes no clubbing, cyanosis or edema and Yes no calf tenderness Right upper extremity: elbow/forearm (lower arm in cast, exposed fingers +ROM) Details: tenderness (distal forearm), swelling (hand) and ecchymosis (fingers); no unusual warmth Assessment & Plan Assessment & Plan (1) Scoliosis (and kyphoscoliosis), idiopathic: Code(s): M41.20 - Other idiopathic scoliosis, site unspecified Category: Medical (2) Lumbar degenerative disc disease: Code(s): M51.36 - Other intervertebral disc degeneration, lumbar region Category: Medical (3) Lumbar spondylosis: Code(s): M47.816 - Spondylosis without myelopathy or radiculopathy, lumbar region Category: Medical (4) Sacroiliac joint pain: Code(s): M53.3 - Sacrococcygeal disorders, not elsewhere classified Category: Medical (5) History of recent fall: Code(s): Z91.81 - History of falling Category: Medical Plan Patient is undergoing right forearm/wrist surgery tomorrow s/p recent fall last week. We discussed repeating bilateral diagnostic lumbar MBBs for potential RFA procedures. Extensive discussion done regarding the risks and benefits of SCS trial and implant procedures and all questions were answered to patient satisfaction.?Patient will reach out to [employer] patient accounting representative to discuss potential interference with neuromoduation and pacemaker/defibrillator in place. Patient will notify our office of her decision after hand surgery and rehabilitation regarding her decision to proceed with repeating diagnostic injections for potential lumbar medial branch RFA vs Behavioral evalution for potential SCS trial. All questions and concerns have been answered and patient agreed with the plan. Follow up as needed. Coding Level of Care Code Est Pt Level 3 (93850) Diagnoses Scoliosis (and kyphoscoliosis), idiopathic M41.20 Lumbar degenerative disc disease M51.36 Lumbar spondylosis M47.816 Sacroiliac joint pain M53.3 History of recent fall Z91.81
[2024-01-21 13:34] VITALS: BP 116/67; PULSE 82; O2SAT 99; BMI 29.3
== END 2024-01-21 13:54 | disposition home or self-care (01) ==
PROVIDERS: PCP Registered Nurse; Visit Provider Nurse Practitioner Family
DX: M41.20 Other idiopathic scoliosis, site unspecified (principal); M51.36 Other intervertebral disc degeneration, lumbar region; M47.816 Spondylosis without myelopathy or radiculopathy, lumbar region; M53.3 Sacrococcygeal disorders, not elsewhere classified; Z91.81 History of falling
CPT/HCPCS: 99213

== ENCOUNTER → 2024-01-21 13:28 | Outpatient (BNVA) | payer OTHER, MEDICAID, SELFPAY | PROVIDERS: PCP Registered Nurse; Visit Provider Nurse Practitioner Family | DX: M41.20 Other idiopathic scoliosis, site unspecified (principal); M51.36 Other intervertebral disc degeneration, lumbar region; M47.816 Spondylosis without myelopathy or radiculopathy, lumbar region; M53.3 Sacrococcygeal disorders, not elsewhere classified; Z91.81 History of falling | CPT/HCPCS: 99212 ==

== ENCOUNTER → 2024-03-09 23:59 | Outpatient (BNV) | payer OTHER, MEDICAID, SELFPAY ==
--- NOTE | 2024-03-15 09:38 | A.OFFVIS_ITS ---
Intake Visit Reasons: Remote ICD Check- CriticalBlue Allergies No Known Allergies Allergy (Verified 01/21/24 13:35) [facility] Medical History Scoliosis (and kyphoscoliosis), idiopathic PITTS (dyspnea on exertion) Restrictive lung disease Atherosclerotic cardiovascular disease Persistent atrial fibrillation Chronic heart failure with preserved ejection fraction Ventricular tachycardia Cardiac defibrillator in place Surgical History Status post mitral valve replacement with bioprosthetic valve Status post aorto-coronary artery bypass graft S/P transcatheter mitral valve replacement (TMVR) History of open heart surgery Family History Mother No problems noted. Father No problems noted. Social History Alcohol intake: never Patient Tobacco Use Status: Former Tobacco user Office Procedures Cardiac Device Check Cardiac Device Check Details: Date of service 03/09/2024; Battery life 15 years; normal lead parameters; no treated VT/VF; normal ICD function. [id number] Cardiac Interrogation, implant defibrillator w/interim Procedure code (CPT) selection complete Assessment & Plan Assessment & Plan (1) Ventricular tachycardia: Comment: On sotalol for V-Tach. Rates have been controlled. No alerts on ICD. Code(s): I47.20 - Ventricular tachycardia, unspecified Category: Medical Plan x Coding Level of Care Code Procedure Only Diagnoses Ventricular tachycardia I47.20 CPT Codes Cardiac Device Check - Cardiac Device 13: [id number] Cardiac Interrogation, implant defibrillator w/interim ([id number])
== END ==
PROVIDERS: PCP Registered Nurse; Visit Provider Internal Medicine
DX: I47.20 Ventricular tachycardia, unspecified (principal); Z95.810 Presence of automatic (implantable) cardiac defibrillator
CPT/HCPCS: 93295

== ENCOUNTER 2024-03-31 13:09 | Outpatient (AMB) | payer OTHER, MEDICAID, SELFPAY ==
--- NOTE | 2024-03-31 13:29 | A.OFFVIS_ITS ---
Vital Signs 03/31/24 13:30 Height 5 ft Weight 132 lb 4.438 oz BMI 25.8 BP 118/62 Blood Pressure Location Lt brachial Position Sitting Pulse 51 Pulse Source Pulse Oximeter Intake Visit Reasons: 6 mth f/u Allergies No Known Allergies Allergy (Verified 01/21/24 13:35) Medication List - Last Reconciled 03/31/24 by Martina Abad NP apixaban (Eliquis) 5 mg PO BID buprenorphine-naloxone 8-2 mg 1.5 tabs sublingual DAILY fluoxetine 20 mg PO DAILY gabapentin 800 mg PO TID moxifloxacin 0.5% 1 drp ophthalmic-Right DAILY sotalol 60 mg PO BID torsemide 40 mg (2 x 20 mg) PO BID 30 days HPI Comments Details: 68-year-old female presents today for a follow-up. She reports she has been doing well. She has a medical history of restrictive lung disease, DVT on eliq uis, persistent atrial fibrillation, HFpEF, mitral valve replacement, and ventricular tachycardia. History of V-Tach causing cardiac arrest in 1995 and had an ICD placed. She states her shortness of breath is chronic and is about the same as it has been. She denies chest pains, palpitations, dizziness, or swelling in her legs. She reports she has been doing well and has cut back on sweets which has made her lose weight. [facility] Medical History (Updated 04/01/24 @ 10:29 by Martina Abad NP) Incomplete right bundle branch block Scoliosis (and kyphoscoliosis), idiopathic PITTS (dyspnea on exertion) Restrictive lung disease Atherosclerotic cardiovascular disease Persistent atrial fibrillation Chronic heart failure with preserved ejection fraction Ventricular tachycardia Cardiac defibrillator in place Surgical History Status post mitral valve replacement with bioprosthetic valve Status post aorto-coronary artery bypass graft S/P transcatheter mitral valve replacement (TMVR) History of open heart surgery Family History Mother No problems noted. Father No problems noted. Social History Alcohol intake: never Patient Tobacco Use Status: Former Tobacco user Review of Systems Const Denies weakness ENT Denies dizziness Card Denies chest pain, Denies chest pain with activity, Denies syncope, Denies rapid heart rate, Denies pedal edema, Denies edema, Denies leg edema, Denies lightheadedness, Denies palpitations, Denies dyspnea, Denies dyspnea on exertion and Denies orthopnea Resp Denies cough, Denies dyspnea and Denies dyspnea on exertion GI Denies hematochezia and Denies change in stool character Musc Denies abnormal gait, Denies muscle cramps, Denies muscle weakness, Denies numbness, Denies radiating pain into limb and Denies tingling Neuro Denies abnormal gait, Denies dizziness, Denies syncope, Denies numbness, Denies tingling and Denies weakness Endo Denies palpitations Physical Exam Vital Signs: Last Vital Signs Pulse 51 03/31/24 13:30 BP 118/62 03/31/24 13:30 BMI result Body Mass Index 25.8 Const General: healthy appearing and no acute distress Orientation/consciousness: patient oriented x3 HEENT Head: Yes normal to inspection Eyes General: appearance normal, both eyes and all related structures Neck Neck: Yes normal visual inspection Chest Chest palpation & inspection: normal inspection of the chest Resp Effort & Inspection: normal respiratory effort Auscultation: clear to auscultation bilaterally Cardio Jugular venous distension: no JVD Palpation: normal PMI Rate: regular rate Rhythm: regular rhythm Heart sounds: S1 normal heart sound present, S2 normal heart sound present, no click, no gallops, no murmurs and no rubs GI Inspection: Yes normal to inspection Palpation (GI): Soft to palpation Skin General skin exam: no rashes or lesions noted Neuro General: patient oriented x3 Extrem General: Yes normal to inspection Psych Appearance: grossly normal Office Procedures EKG Details: EKG today. atrial fibrillation with premature ventricular or aberrantly conducted complexes. Incomplete right Bundle Branch Block. Septal Infarct. age undetermned. ST & T wave abnormality, consider inferior ischemia. ST & T wave abnormality, consider aterolateral ischemia. [place]complete RBBB [place] [id number], Complete Assessment & Plan Assessment & Plan (1) S/P transcatheter mitral valve replacement (TMVR): Code(s): Z95.2 - Presence of prosthetic heart valve Category: Medical Plan: Bioprosthetic mitral valve functioning normal in last echocardiogram on 09/14/22. Stable. Infective endocarditis prophylaxis per protocol. Will repeat echocardiogam prior to next visit. (2) Chronic heart failure with preserved ejection fraction: Code(s): I50.32 - Chronic diastolic (congestive) heart failure Category: Medical Plan: On torsemide. Avoiding salt. Not in fluid overload on examination today. (3) Persistent atrial fibrillation: Code(s): I48.19 - Other persistent atrial fibrillation Category: Medical Plan: Rate has been controlled. On eliquis for anticoagulation. (4) Incomplete right bundle branch block: Code(s): I45.10 - Unspecified right bundle-branch block Category: Medical Plan: Feliberto montior via EKG periodically. (5) Ventricular tachycardia: Comment: On sotalol for V-Tach. Rates have been controlled. No alerts on ICD. Code(s): I47.20 - Ventricular tachycardia, unspecified Category: Medical Plan: On Sotalol. Will ask PCP for most recent labs. Orders: Orders CA echo transthoracic complete 5 Months I48.19 - Other persistent atrial fibrillation, I50.32 - Chronic diastolic (congestive) heart failure, Z95.2 - Presence of prosthetic heart valve Coding Level of Care Code Est Pt Level 4 (35728) Diagnoses S/P transcatheter mitral valve replacement (TMVR) Z95.2 Chronic heart failure with preserved ejection fraction I50.32 Persistent atrial fibrillation I48.19 Incomplete right bundle branch block I45.10 Ventricular tachycardia I47.20 CPT Codes EKG - CPT: 29036-[id number], Complete ([id number])
[2024-03-31 13:30] VITALS: BP 118/62; PULSE 51; BMI 25.8
== END 2024-03-31 14:09 | disposition home or self-care (01) ==
PROVIDERS: PCP Family Medicine; Visit Provider Nurse Practitioner
DX: Z95.2 Presence of prosthetic heart valve (principal); I50.32 Chronic diastolic (congestive) heart failure; I48.19 Other persistent atrial fibrillation; I45.10 Unspecified right bundle-branch block; I47.20 Ventricular tachycardia, unspecified
CPT/HCPCS: 93010; 99214

== ENCOUNTER → 2024-03-31 13:09 | Outpatient (BNVA) | payer OTHER, MEDICAID, SELFPAY | PROVIDERS: PCP Family Medicine; Visit Provider Nurse Practitioner | DX: I48.19 Other persistent atrial fibrillation (principal); I11.0 Hypertensive heart disease with heart failure; I50.32 Chronic diastolic (congestive) heart failure; I47.20 Ventricular tachycardia, unspecified; I45.10 Unspecified right bundle-branch block; Z95.2 Presence of prosthetic heart valve | CPT/HCPCS: 93005; 99212 ==

== ENCOUNTER → 2024-06-08 23:59 | Outpatient (BNV) | payer OTHER, MEDICAID, SELFPAY ==
--- NOTE | 2024-06-21 18:58 | A.OFFVIS_ITS ---
Intake Visit Reasons: Remote ICD Check- [employer] Allergies No Known Allergies Allergy (Verified 01/21/24 13:35) [facility] Medical History (Updated 04/01/24 @ 10:29 by Martina Abad NP) Incomplete right bundle branch block Scoliosis (and kyphoscoliosis), idiopathic PITTS (dyspnea on exertion) Restrictive lung disease Atherosclerotic cardiovascular disease Persistent atrial fibrillation Chronic heart failure with preserved ejection fraction Ventricular tachycardia Cardiac defibrillator in place Surgical History Status post mitral valve replacement with bioprosthetic valve Status post aorto-coronary artery bypass graft S/P transcatheter mitral valve replacement (TMVR) History of open heart surgery Family History Mother No problems noted. Father No problems noted. Social History Alcohol intake: never Patient Tobacco Use Status: Former Tobacco user Office Procedures Cardiac Device Check Cardiac Device Check Details: Date of service 06/08/2024; Battery life >14 years; normal lead parameters; no treated VT/VF; NSVT noted ; normal ICD function. [id number] Cardiac Interrogation, implant defibrillator w/interim Procedure code (CPT) selection complete Assessment & Plan Assessment & Plan (1) ICD (implantable cardioverter-defibrillator) in place: Code(s): Z95.810 - Presence of automatic (implantable) cardiac defibrillator Category: Medical (2) Chronic heart failure with preserved ejection fraction: Code(s): I50.32 - Chronic diastolic (congestive) heart failure Category: Medical (3) Persistent atrial fibrillation: Code(s): I48.19 - Other persistent atrial fibrillation Category: Medical Plan x Coding Level of Care Code Procedure Only Diagnoses ICD (implantable cardioverter-defibrillator) in place Z95.810 Chronic heart failure with preserved ejection fraction I50.32 Persistent atrial fibrillation I48.19 CPT Codes Cardiac Device Check - Cardiac Device 13: [id number] Cardiac Interrogation, implant defibrillator w/interim ([id number])
== END ==
PROVIDERS: PCP Family Medicine; Visit Provider Internal Medicine
DX: I50.32 Chronic diastolic (congestive) heart failure (principal); I48.19 Other persistent atrial fibrillation; Z95.810 Presence of automatic (implantable) cardiac defibrillator
CPT/HCPCS: 93295

== ENCOUNTER → 2024-09-02 13:58 | Outpatient (REF) | payer MEDICARE, MEDICAID, SELFPAY ==
--- NOTE | 2024-09-02 14:01 | CA_ITS ---
Transthoracic Echocardiogram Patient (Last, First, Middle): Mirna Dwyer P Gender: Female Date of : 1955 Age: 68 Procedure Date: 09/02/2024 Procedure Type: Transthoracic Echocardiogram Location: OP Height: 152.4 cm Weight: 58.97 kg BSA: 1.55 m2 Heart Rate: bpm BP: 126 / 86 mmHg Assembly Adjuster: TO Referring MD: Martina Abad NP Symptoms: Z95.2 - Presence of prosthetic heart valve Study Quality: Adequate ECG Rhythm: Atrial Fibrillation Conclusions: - The left ventricular systolic function is normal. The calculated ejection fraction is 59% by biplane method. - The left atrium is moderately dilated. - [id number] intra-atrial shunting on color Doppler suggestive of atrial septal defect. - A bioprosthetic mitral valve is present. The prosthetic mitral valve appears to be functioning normally. - There is moderate tricuspid valve regurgitation. - Mild pulmonary hypertension is present. Findings Left Ventricle Normal left ventricular cavity size. The left ventricular systolic function is normal. The calculated ejection fraction is 59% by biplane method. There is no evidence of regional wall motion abnormalities. Diastolic function is indeterminate on the basis of available data. There is mild septal asymmetric hypertrophy. Right Ventricle Mildly increased right ventricular cavity size. There is moderately decreased right ventricular systolic function. Atria The left atrium is moderately dilated. The right atrium is severely dilated. Hypv-fv-jjjsq intra-atrial shunting on color Doppler suggestive of atrial septal defect. Aortic Valve There is a normal trileaflet aortic valve. There is no aortic valve stenosis. There is mild aortic valve regurgitation. Mitral Valve A bioprosthetic mitral valve is present. The prosthetic mitral valve appears to be functioning normally. There is no mitral valve regurgitation. Pulmonic Valve There is mild pulmonic valve regurgitation. Tricuspid Valve There is moderate tricuspid valve regurgitation. Mild pulmonary hypertension is present. Great Vessels The asc aorta is normal in size. Venous The inferior vena cava is dilated and collapses less than 50% with inspiration. Pericardium/Pleural There is no evidence of pericardial effusion. Prior Study Comparison No significant change compared to prior study dated: 09/14/2022. Measurements 2D Linear Measurements IVSd: 1.17 0.6-0.9/0.6-1.0 cm LVIDd: 4.02 3.9-5.3/4.2-5.9 cm LVIDd Index: 2.59 2.4-3.2/2.2-3.1 cm/m2 LVIDs: 2.33 2.0-3.6 cm LVPWd: 0.87 0.7-1.1 cm LV Mass: 164.11 67-162/88-224 g LV Mass Index: 105.88 43-95/49-115 g/m2 LVOT Diam: 2.20 3.0+(-)1.3 cm 2D Systolic Function EF 4C: 50.20 >55% EF 2C: 64.80 >55% EF BiP: 58.90 >55% Mitral Valve MV VTI: 0.41 MV Pk Ryan: 1.68 MV Mn Ryan: 0.90 MV Pk Grad: 11.00 MV Mn Grad: 4.00 MV Pk E: 1.44 MV PK A: 0.95 MV Decel Time: 161.00 E/A: 1.50 E'Lateral: 8.05 E'Medial: 4.90 E/E' Med: 29.40 E/E' Lat: 17.90 PHT: 47.00 MVA PHT: 4.68 MVA Continuity: 2.14 Decel [place]: 9.09 Aortic Valve AoV Pk Ryan: 1.43 AoV Mn Ryan: 0.92 AoV VTI: 0.32 AoV Pk Grad: 8.00 Aov Mn Grad: 4.00 KATH Cont.VTI: 2.78 AI Pk Ryan: 4.35 AI [place]: 1.73 LVOT LVOT Pk Ryan: 0.88 LVOT Mn Ryan: 0.66 LVOT VTI: 0.23 LVOT Pk Grad: 3.00 LVOT Mn Grad: 2.00 LVOT Diam: 2.20 LVOT Area: 3.80 Diastolic Function MV Pk E: 1.44 MV Pk A: 0.95 E/A: 1.50 E'Medial: 4.90 E/E' Med: 29.40 E' Laterial: 8.05 E/E' Lat: 17.90 Right Ventricle TAPSE (mm): 12.30 TVS' Ryan: 5.69 Tricuspid Valve TR Pk Ryan: 2.47 TR Pk Grad: 24.00 RA Press: 15.00 RVSP: 39.00 Great Vessels Aorta Sinus of Valsalva: 4.05 2.0-3.5 cm Ao Asc: 3.60 2.1-3.4 cm Updated in Other Vendor System with Status of Final Ok Macias MD electronically signed on 09/04/2024 4:27:19 PM with status of Final
== END ==
LOC: HO.CARD 13:58
PROVIDERS: Visit Provider Internal Medicine
DX: I48.19 Other persistent atrial fibrillation (principal); I50.32 Chronic diastolic (congestive) heart failure; Z95.2 Presence of prosthetic heart valve
CPT/HCPCS: 93306

== ENCOUNTER → 2024-09-02 14:01 | Outpatient (BNV) | payer MEDICARE, MEDICAID, SELFPAY | PROVIDERS: Visit Provider Internal Medicine | DX: I42.2 Other hypertrophic cardiomyopathy (principal); Z95.3 Presence of xenogenic heart valve; I51.7 Cardiomegaly; I35.1 Nonrheumatic aortic (valve) insufficiency | CPT/HCPCS: 93306 ==

== ENCOUNTER → 2024-09-07 23:59 | Outpatient (BNV) | payer MEDICARE, MEDICAID, SELFPAY ==
--- NOTE | 2024-09-09 19:06 | A.OFFVIS_ITS ---
Intake Visit Reasons: Remote ICD Check- [employer] Allergies No Known Allergies Allergy (Verified 01/21/24 13:35) [facility] Medical History (Updated 04/01/24 @ 10:29 by Martina Abad NP) Incomplete right bundle branch block Scoliosis (and kyphoscoliosis), idiopathic PITTS (dyspnea on exertion) Restrictive lung disease Atherosclerotic cardiovascular disease Persistent atrial fibrillation Chronic heart failure with preserved ejection fraction Ventricular tachycardia Cardiac defibrillator in place Surgical History Status post mitral valve replacement with bioprosthetic valve Status post aorto-coronary artery bypass graft S/P transcatheter mitral valve replacement (TMVR) History of open heart surgery Family History Mother No problems noted. Father No problems noted. Social History Alcohol intake: never Patient Tobacco Use Status: Former Tobacco user Office Procedures Cardiac Device Check Cardiac Device Check Details: Date of service 09/07/2024; Battery life >14years; normal lead parameters; no treated VT/VF; normal ICD function. [id number] Cardiac Interrogation, implant defibrillator w/interim Procedure code (CPT) selection complete Assessment & Plan Assessment & Plan (1) ICD (implantable cardioverter-defibrillator) in place: Code(s): Z95.810 - Presence of automatic (implantable) cardiac defibrillator Category: Medical (2) Ventricular tachycardia: Comment: On sotalol for V-Tach. Rates have been controlled. No alerts on ICD. Code(s): I47.20 - Ventricular tachycardia, unspecified Category: Medical Plan x Coding Level of Care Code Procedure Only Diagnoses ICD (implantable cardioverter-defibrillator) in place Z95.810 Ventricular tachycardia I47.20 CPT Codes Cardiac Device Check - Cardiac Device 13: [id number] Cardiac Interrogation, implant defibrillator w/interim ([id number])
== END ==
PROVIDERS: Visit Provider Internal Medicine
DX: I47.20 Ventricular tachycardia, unspecified (principal); Z95.810 Presence of automatic (implantable) cardiac defibrillator
CPT/HCPCS: 93295

== ENCOUNTER 2024-10-13 13:02 | Outpatient (AMB) | payer MEDICARE, MEDICAID, SELFPAY ==
--- NOTE | 2024-10-13 13:16 | MHC.OFFVIS ---
Vital Signs 10/13/24 13:17 Height 5 ft Weight 132 lb BMI 25.8 BP 118/60 Blood Pressure Location Lt brachial Position Sitting Pulse 65 Pulse Source Monitor Intake Visit Reasons: 6 mth w/ [facility] Allergies No Known Allergies Allergy (Verified 01/21/24 13:35) Medication List - Last Reconciled 10/13/24 by Ok Macias MD apixaban (Eliquis) 5 mg PO BID buprenorphine-naloxone 8-2 mg 1.5 tabs sublingual DAILY fluoxetine 20 mg PO DAILY gabapentin 800 mg PO TID moxifloxacin 0.5% 1 drp ophthalmic-Right DAILY sotalol 60 mg PO BID torsemide 40 mg (2 x 20 mg) PO BID 30 days HPI Comments Details: Mirna returns for follow-up. Previously, followed up at [facility] but then switched to us. Long and complicated cardiac history. She has a history of ventricular tachycardia causing cardiac arrest in 1995. At that time, she had an ICD placed. Generator change in 2002, 2008. She is maintained on sotalol for the ventricular tachycardia. She also has a history of mitral valve prolapse, status [place]oprost[place] [facility] [place] Also had tricuspid valve repair, [place] appendage ligation, CABG. 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 Has history of DVT on Eliquis. Also listed to have chronic heart failure with preserved ejection fraction. Overall, she feels just about the same as before. Shortness of breath is very similar. She is on torsemide but she states that she has forgets some doses off and on. Otherwise, getting along fine. [facility] Medical History (Updated 10/13/24 @ 13:27 by Ok Macias MD) Incomplete right bundle branch block Scoliosis (and kyphoscoliosis), idiopathic PITTS (dyspnea on exertion) Restrictive lung disease Atherosclerotic cardiovascular disease Persistent atrial fibrillation Chronic heart failure with preserved ejection fraction Ventricular tachycardia Cardiac defibrillator in place Surgical History Status post mitral valve replacement with bioprosthetic valve Status post aorto-coronary artery bypass graft S/P transcatheter mitral valve replacement (TMVR) History of open heart surgery Family History Mother No problems noted. Father No problems noted. Social History Alcohol intake: never Patient Tobacco Use Status: Former Tobacco user Review of Systems Const Denies weakness ENT Denies dizziness Card Denies chest pain, Denies chest pain with activity, Denies syncope, Denies rapid heart rate, Denies pedal edema, Denies edema, Denies leg edema, Denies lightheadedness, Denies palpitations, Denies dyspnea, Denies dyspnea on exertion and Denies orthopnea Resp Denies cough, Denies dyspnea and Denies dyspnea on exertion GI Denies hematochezia and Denies change in stool character Musc Denies abnormal gait, Denies muscle cramps, Denies muscle weakness, Denies numbness, Denies radiating pain into limb and Denies tingling Neuro Denies abnormal gait, Denies dizziness, Denies syncope, Denies numbness, Denies tingling and Denies weakness Endo Denies palpitations Physical Exam Vital Signs: Last Vital Signs Pulse 65 10/13/24 13:17 BP 118/60 10/13/24 13:17 BMI result Body Mass Index 25.8 Const General: comfortable and no acute distress Orientation/consciousness: patient oriented x3 HEENT Other: Unremarkable Head: Yes normal to inspection Neck Neck: Yes normal visual inspection Chest Chest palpation & inspection: normal inspection of the chest Resp Auscultation: clear to auscultation bilaterally Cardio Palpation: normal PMI Heart sounds: S1 normal heart sound present, S2 normal heart sound present, no gallops, no murmurs and no rubs GI Palpation (GI): Soft to palpation Back/Spine/Pelvis Other: unremarkable Skin General skin exam: no rashes or lesions noted Neuro General: patient oriented x3 Extrem General: Yes normal to inspection Psych Mental Status: mental status grossly normal Office Procedures Cardiac Device Check Cardiac Device Check Details: ICD interrogated today. Single-chamber device, programmed VVI. Battery status 14 years. Normal lead parameters. No alerts. Nonsustained ventricular episode. Overall, normal device function. [id number] Cardiac Device Check, single lead implantable defibrillator Procedure code (CPT) selection complete EKG Details: EKG with atrial fibrillation at a rate of 65/Min; rightward axis; incomplete right bundle-branch block pattern; PVC. [id number], Complete Assessment & Plan Assessment & Plan (1) S/P transcatheter mitral valve replacement (TMVR): Code(s): Z95.2 - Presence of prosthetic heart valve Category: Surgical Plan: In the most recent echocardiogram from 08/2024, normally functioning bioprosthetic mitral valve. Stable. Infective endocarditis prophylaxis per protocol. (2) Ventricular tachycardia: Code(s): I47.20 - Ventricular tachycardia, unspecified Category: Medical Plan: She is maintained on long-term Sotalol. Check labs. (3) Persistent atrial fibrillation: Code(s): I48.19 - Other persistent atrial fibrillation Category: Medical Plan: Sotalol is more for ventricular tachycardia than atrial fibrillation. Rate seems well controlled. Continue Eliquis. Also history of left atrial appendage ligation from prior cardiac surgery. (4) Chronic heart failure with preserved ejection fraction: Code(s): I50.32 - Chronic diastolic (congestive) heart failure Category: Medical Plan: On Torsemide. Stable. Per patient, if she forgets doses off and on but no overt heart failure symptoms or signs. (5) Atherosclerotic cardiovascular disease: Code(s): I25.10 - Atherosclerotic heart disease of [place] coronary artery without angina pectoris Category: Medical Plan: Last cardiac catheterization 2018- LAD showed only minor irregularities. Atretic FONSECA graft. Probably from nonobstructive LAD. Otherwise normal coronaries. Not listed to be on statins. We will request PCP note. We will also need a lipid profile. Orders: Orders Basic Metabolic Panel 04/01/24 I25.10 - Atherosclerotic heart disease of [place] coronary artery without angina pectoris, I47.20 - Ventricular tachycardia, unspecified, I50.32 - Chronic diastolic (congestive) heart failure Lipid Panel Today E78.5 - Hyperlipidemia, unspecified, I25.10 - Atherosclerotic heart disease of [place] coronary artery without angina pectoris Liver Panel Today I25.10 - Atherosclerotic heart disease [place] coronary artery without angina pectoris Coding Level of Care Code Est Pt Level 4 (87452) Diagnoses S/P transcatheter mitral valve replacement (TMVR) Z95.2 Ventricular tachycardia I47.20 Persistent atrial fibrillation I48.19 Chronic heart failure with preserved ejection fraction I50.32 Atherosclerotic cardiovascular disease I25.10 CPT Codes Cardiac Device Check - Cardiac Device 4: [id number] Cardiac Device Check, single lead implantable defibrillator ([id number]) EKG - CPT: 25977-[id number], Complete ([id number])
[2024-10-13 13:17] VITALS: BP 118/60; PULSE 65; BMI 25.8
--- OUTSIDE RECORDS SUMMARY | 2024-10-13 13:56 | XMS_ITS | Clinical Summary ---
Author Organization [facility], Address [address] [place] [address] [place] [address] Phone Care Team Providers Care Smoke Control Supervisor Name Role Phone Mamta Martin PA-C Primary Care Provider [phone] Allergies No known active allergies Medications amoxicillin (AMOXIL) 500 MG capsule Take by mouth Active buprenorphine-na loxone (SUBOXONE) 8-2 MG per SL tablet Place 1 tablet under the tongue 1 (one) time each day Active Cyanocobalamin 1000 MCG capsule Take by mouth Active apixaban (Eliquis) 5 MG tablet Take 5 mg by mouth 2 (two) times a day Active escitalopram (LEXAPRO) 10 MG tablet Take 10 mg by mouth 1 (one) time each day Active gabapentin (NEURONTIN) 100 MG capsule Take 100 mg by mouth 3 (three) times a day Active gabapentin (NEURONTIN) 300 MG capsule Take 100 mg by mouth 3 (three) times a day Active gabapentin (NEURONTIN) 600 MG tablet Take 600 mg by mouth 3 (three) times a day Active acetaminophen (Acetaminophen 8 Hour) 650 MG 8 hr tablet Take 650 mg by mouth every 8 (eight) hours if needed for mild pain Do not crush, chew, or split. Active omeprazole (PriLOSEC) [address] capsule Take 20 mg by mouth 1 (one) time each day Do not crush or chew. Active sotalol (BETAPACE) 120 MG tablet Take 120 mg by mouth 2 (two) times a day Active torsemide (DEMADEX) 20 MG tablet Take 20 mg by mouth 1 (one) time each day Active Active Problems Problem Noted Date Diagnosed Date Congestive heart failure 11/02/2020 Stage 3a chronic kidney disease 11/01/2020 Social History Tobacco Use Types Packs/Day Years Used Date Smoking Tobacco: Former Comments Unknown Sex and Gender Information Value Date Recorded Sex Assigned at Not on file Legal Sex Female 11:25 AM EST Gender Identity Not on file Sexual Orientation Not on file Plan of Treatment Health Maintenance Due Date Last Done Comments Breast Cancer Screening 1955 Pneumococcal Vaccine: 65+ Ye ars (1 of 2 - PCV) 11/13/1961 Colorectal Cancer Screening: Annual FOBT 11/13/2004 Colorectal Cancer Screening: Colonoscopy 11/13/2004 Colorectal Cancer Screening: Sigmoidoscopy 11/13/2004 Influenza Vaccine (#1) 2024 Hepatitis B Vaccine Aged Out No longe r eligible based on patient's age to complete this topic Insurance [facility] [id number] Care Teams Smoke Control Supervisor Relationship Specialty Start Date End Date Mamta Martin PA-C [address] [place] [id number] PCP - General Family Medicine 09/09/20
--- OUTSIDE RECORDS SUMMARY | 2024-10-13 13:56 | XMS_ITS | Continuity of Care Document ---
Author Organization [facility] Address [address] [place] [address] Phone Care Team Providers Care Pbx Technician Name Role Phone Unavailable Unavailable Unavailable Advance Directives Directive Yes / No Effective Date File Name No Information Encounters Encounter Description Practice Location Reason(s) For Visit Diagnoses Date Provider Providers Copied on Encounter [facility], [address], [place], [place], [id number], [place] tel:[phone] Imported From Previous EHR Unspecified depressive disorderUnspecif ied anxiety disorder No Information As per patient privacy policy some of the clinical information may not be visible. Family History Family Member Type Diagnosis Age At Onset No Information Payers Payer name Insurance type Covered republican ID Authoriza tion(s) No Information Social History Type Description Quantity Date Captured Comments Sex Female Smoking Status No Information Chief Complaint And Reason For Visit No Information Reason For Referral Reason For Referral No Information History Of Present Illness Encounter Date Complaint History Of Prese nt Illness No Information Functional Status Date Functional Assessmen t No Information Instructions Date Instruction Additional Infor mation No Information Assessments Type Assessment Date No Information Patient Care Teams Name Effective Dates (start - stop) Status Members No Information
--- OUTSIDE RECORDS SUMMARY | 2024-10-13 13:57 | XMS_ITS | Encounter Summary ---
Author Organization [email or web address] Address [address] [place] [address] Care Team Providers Care Supply Assistant Name Role Phone Unavailable Primary Care Provider Unavailabl e Encounter Details Date Type Department Care Team (Latest Contact Info) Description 08/14/2019 Abstract [facility] Dental, Provider, DDS Social History Tobacco Use Types Packs/Day Years Used Date Smoking Tobacco: Never Assessed Comments Unknown Sex and Gender Information Value Date Recorded Sex Assigned at Female 06/25/2022 10:36 AM EDT Legal Sex Female 10:36 AM EDT Gender Identity Female 06/25/2022 10:36 AM EDT Sexual Orientation Straight 06/25/2022 10 :36 AM EDT documented as of this encounter Plan of Treatment Not on file documented as of this encounter Visit Diagnoses Not on filedocumented in this encounter
--- OUTSIDE RECORDS SUMMARY | 2024-10-13 13:57 | XMS_ITS | Encounter Summary ---
Author Organization [employer] Address [address] [place] [address] Care Team Providers Care Home Health Aide Caregiver Name Role Phone Unavailable Primary Care Provider Unavailabl e Encounter Details Date Type Department Care Team (Latest Contact Info) Description 11/07/2020 Abstract [facility] Dental, Provider, DDS Social History [...]
--- OUTSIDE RECORDS SUMMARY | 2024-10-13 13:57 | XMS_ITS | Clinical Summary ---
Author Organization [employer] Address [address] [place] [address] Care Team Providers Care Grizzly Worker Name Role Phone Unavailable Primary Care Provider Unavailabl e Allergies No known active allergies Medications acetaminophen (Tylenol 8 Hour) 650 MG ER tablet Take 650 mg by mouth. Active alendronate (Fosamax) 70 MG tablet TAKE 1 TABLET BY MOUTH 1 TIME WEEKLY DIRECTED 2 Active amoxicillin (Amoxil) 500 MG capsule take 4 capsule by oral route 1 hour before the dental procedure 1 Active amoxicillin-cla vulanate (Augmentin) 500-125 MG tablet 2 Active apixaban (Eliquis) 5 MG tablet Take 1 tablet by mouth every 12 (twelve) hours. Active buprenorphine-n aloxone (Suboxone) 8-2 MG SL tablet TAKE 1.5 TABLET BY MOUTH EVERY DAY 2 Active FLUoxetine (PROzac) 20 MG capsule Take 20 mg by mouth in the morning. 2 Active gabapentin (Neurontin) 100 MG capsule TAKE 1 CAPSULE BY MOUTH THREE TIMES DAILY IN ADDITION TO THE 300 MG AND 600 MG CAPSULE 2 Active gabapentin (Neurontin) 300 MG capsule TAKE 1 CAPSULE BY MOUTH THREE TIMES DAILY TAKE WITH 600MG CAPSULE 2 Active gabapentin (Neurontin) 600 MG tablet Take 600 mg by mouth in the morning, at noon, and at bedtime. 2 Active moxifloxacin (Vigamox) 0.5 % ophthalmic solution INSTILL 1 DROP IN RIGHT EYE EVERY DAY 2 Active omeprazole (PriLOSEC) [address] capsule Take 20 mg by mouth in the morning. 2 Active sotalol (Betapace) 120 MG tablet Take 120 mg by mouth in the morning. 2 Active torsemide (Demadex) 20 MG tablet Take 40 mg by mouth in the morning and at bedtime. Active Social History Tobacco Use Types Packs/Day Years Used Date Smoking Tobacco: Never Smokeless Tobacco: Never Comments Unknown Sex and Gender Information Value Date Recorded Sex Assigned at Female 06/25/2022 10:36 AM EDT Legal Sex Female 10:36 AM EDT Gender Identity Female 06/25/2022 10:36 AM EDT Sexual Orientation Straight 06/25/2022 10 :36 AM EDT Last Filed Vital Signs Vital Sign Reading Time Taken Comments Blood Pressure 90/62 10/20/2020 12:02 AM EST Pulse - - Temperature - - Respiratory Rate - - Oxygen Saturation - - Inhaled Oxygen Concentration - - Weight - - Height - - Body Mass Index - - Plan of Treatment Health Maintenance Due Date Last Done Comments CT Colonography 1955 Colonoscopy 1955 Colorectal Cancer Screening 1955 Dental Oral Exam 1955 Dental Prophylaxis 1955 Dental X-Ray: Bitewings 1955 Dental X-Ray: Full Mouth 1955 Depression Screening 1955 FIT DNA/Cologuard 1955 FIT 1955 FOBT 1955 Lipid Panel 1955 SDOH Screening 1955 Sigmoidoscopy 1955 Alcohol/Substance Use Screening 1967 Hepatitis C Screening 11/13/1973 DTaP/Tdap/Td Vaccines (1 - Tdap) 11/13/1974 Mammogram 1995 Pneumococcal Vaccine: 50+ Ye ars (1 of 1 - PCV) 11/13/2005 Zoster Vaccines (1 of 2) 11/13/2005 RSV Patients and Pa tients Aged 60 years or older (1 - Risk 60-74 years 1-dose series) 2015 COVID-19 Vaccine ( - 2023-2 5 season) 2024 Influenza Vaccine (#1) 2024 Tobacco Screening 09/11/2024 09/11/2023 HIB Vaccines Aged Out No longer eligi ble based on patient's age to complete this topic HPV Vaccines Aged Out No longer eligi ble based on patient's age to complete this topic Hepatitis A Vaccines Aged Out No long er eligible based on patient's age to complete this topic Hepatitis B Vaccines Aged Out No long er eligible based on patient's age to complete this topic IPV Vaccines Aged Out No longer eligi ble based on patient's age to complete this topic Meningococcal Vaccine Aged Out No yanelis sigrid eligible based on patient's age to complete this topic RSV under 20 months Aged Out No longe r eligible based on patient's age to complete this topic Rotavirus Vaccines Aged Out No longer eligible based on patient's age to complete this topic [facility]
--- OUTSIDE RECORDS SUMMARY | 2024-10-13 13:57 | XMS_ITS | Data Portability ---
Author Organization [facility], DOT Address [address] [place] [address] Assessment Encounter Date Assessment Date Assessment LastModified by Organization Details LastModified Time 11/20/2018 11/20/2018 Dr Vizcaino on medical leave/retired - signed encounter in [address] only to close encounter Not available 09/19/2019 22:18:17 04/08/2019 04/08/2019 stable nonew imeds efribush Not available 04/08/2019 16:08:20 12/11/2019 12/11/2019 confusing hx not living in the area has not lived in the area for a year spent time in detox, was not totally truthful in the hx on rosibel, sub, and has bzd available masspat reviewed and she has current scripts for rosibel I can only assume that this is provider shopping for scripts and i have asked he to please follow up with her prescriber of the bup and the rosibel and that she should ideally have all CS coming from one prescribber. She stated she understands and will talk with them At this time I am hesitant to write any scripts, she is out of the area with no plans to move back, has what appears to be a new PCP with a bup provider as well all int [facility]. As well she stated she is following with [facility] and i suspec PCP services there. no scripts and I talked further with her that we could resume PCP services if she were to move back to the area with d/c letter from other providers to keep it simple and one pcp. She understands. tov 50M with > 50% spent in counseling on standard of care with oud, etoh, high risk meds, single prescriber, local pcp and specialty service. Intiza records also reviewed and nothing much in the past ~2 years Not available 12/11/2019 16:35:56 Plan of Treatment Reminders Order Date Submit Date Provider Last Modified By Organization Details Last Modified Time Details Appointments None record ed. Lab None record ed. Referral None record ed. Procedures None record ed. Surgeries None record ed. Imaging None record ed. Medication Orders None record ed. Patient TargetsNo targets recorded. Patient InstructionsNo instructions recorded. Reason for Referral None Reported. Results Created Date Observation Date Name Description Value Unit Range Abnormal Flag Note LastModifiedBy Organization Detail LastModifiedTime 04/08/2004/08/2019 CBC WBC count 6.1 K/mm3 4.0-11 .0 normal Not Available [address] [place] [address], [address], 04/08/2019 20:36:59 04/08/2004/08/2019 CBC red blood cell count 3.69 M/uL 4.00-5 .50 low Not Available [address] [place] [address], [address], 04/08/2019 20:36:59 04/08/2004/08/2019 CBC hemoglobin 11.4 gm/dL 12.0-1 6.0 low Not Available [address] [place] [address], [address], 04/08/2019 20:36:59 04/08/2004/08/2019 CBC hematocrit 36.7 % 37.0-4 7.0 low Not Available [address] [place] [address], [address], 04/08/2019 20:36:59 04/08/2004/08/2019 CBC MCV 99.5 fL 80.0-1 00.0 normal Not Available [address] [place] [address], [address], 04/08/2019 20:36:59 04/08/2004/08/2019 CBC RDW 12.5 % 11.5-1 6.0 normal Not Available [address] [place] [address], [address], 04/08/2019 20:36:59 04/08/2004/08/2019 CBC plt count 191 K/uL 140-40 0 normal Not Available [address] [place] [address] [address] [place] [address], [address], 04/08/2019 20:36:59 04/08/2004/08/2019 CBC mean platelet volume 10.3 fL 7.4-10 .4 normal Not Available [address] [place] [address] [address] [place] [address], [address], 04/08/2019 20:36:59 04/08/2004/08/2019 CBC NRBC% 0.0 % 0.0-0. 7 normal Not Available [address] [place] [address] [address] [place] [address], [address], 04/08/2019 20:36:59 04/08/2004/08/2019 CBC ne# 4.31 K/uL 1.50-7 .50 normal Not Available [address] [place] [address] [address] [place] [address], [address], 04/08/2019 20:36:59 04/08/2004/08/2019 CBC ly# 0.99 K/uL 1.00-4 .50 low Not Available [address] [place] [address] [address] [place] [address], [address], 04/08/2019 20:36:59 04/08/2004/08/2019 CBC MO# 0.57 K/uL 0.00-0 .80 normal Not Available [address] [place] [address], [address], 04/08/2019 20:36:59 04/08/2004/08/2019 CBC eo# 0.14 K/uL 0.00-0 .40 normal Not Available [address] [place] [address] [address] [place] [address], [address], 04/08/2019 20:36:59 04/08/2004/08/2019 CBC ba# 0.04 K/uL 0.00-0 .20 normal Not Available [address] [place] [address] [address] [place] [address], [address], 04/08/2019 20:36:59 04/08/2004/08/2019 CBC Ig# 0.02 K/uL 0.00-0 .10 normal Not Available [address] [place] [address] [address] [place] [address], [address], 04/08/2019 20:36:59 04/08/2004/08/2019 CBC ne% 71.0 % normal Not Available [address] [place] [address], [address], 04/08/2019 20:36:59 04/08/2004/08/2019 CBC ly% 16.3 % normal Not Available [address] [place] [address], [address], 04/08/2019 20:36:59 04/08/2004/08/2019 CBC MO% 9.4 % normal Not Available [address] [place] [address], [address], 04/08/2019 20:36:59 04/08/2004/08/2019 CBC eo% 2.3 % normal Not Available [address] [place] [address], [address], 04/08/2019 20:36:59 04/08/2004/08/2019 CBC ba% 0.7 % normal Not Available [address] [place] [address], [address], 04/08/2019 20:36:59 04/08/2004/08/2019 CBC Ig% 0.3 % 0.0-1. 4 normal Not Available [address] [place] [address], [address], 04/08/2019 20:36:59 04/08/2004/08/2019 CMP, serum or plasm a glucose 80 mg/dL 70-100 normal Not Available [address] [place] [address], [address], 04/08/2019 21:07:57 04/08/2004/08/2019 CMP, serum or plasm a BUN 20 mg/dL 6-23 normal Not Available [address] [place], [place] [address], [place], [address], 04/08/2019 21:07:57 04/08/2004/08/2019 CMP, serum or plasm a creatinine 1.26 mg/dL 0.0-1. 3 normal Not Available [address] [place] [address], [address], 04/08/2019 21:07:57 04/08/2004/08/2019 CMP, serum or plasm a glomerular filtration rate 45 normal Units : mL/mi n/1.7 3 m2 Estim ated GFR (eGFR ) shoul d not be used for patie nts with acute kidne y injur y or ESRD (crea tinin e shoul d be at stead y state and stabl e to use). eGFR is calcu lated using the 2009 CKD-E PI creat inine equat ion, which is now the recom yoana d equat ion to estim ate GFR based on creat inine per ailyn t KDIGO (Kidn ey Disea se Impro ving Globa l Outco mes) Guide lines . KDIGO recom mends CKD now be class ified based on cause , GFR categ ory, and album inuri a categ ory. GFR categ ories will not be repor aki by the lab for G1 or G2 (eGFR >60). GFR categ ories shoul d be assig isael as: eGFR 45-59 = G3a (mild ly to moder ately decre ased) , eGFR 30-44 = G3b (mode ratel y to sever inga decre ased) , eGFR 15-29 G4 (con rely decre ased) , eGFR< 15 G5 (kidn ey failu re). Not Available [address] [place] [address] [address] [place] [address], [address], 04/08/2019 21:07:57 04/08/2004/08/2019 CMP, serum or plasm a calcium 9.4 mg/dL 8.1-10 .4 normal Not Available [address] [place] [address], [address], 04/08/2019 21:07:57 04/08/2004/08/2019 CMP, serum or plasm a total protein 6.7 g/dL 5.9-7. 9 normal Not Available [address] [place] [address], [address], 04/08/2019 21:07:57 04/08/2004/08/2019 CMP, serum or plasm a albumin 4.3 g/dL 2.9-4. 7 normal Not Available [address] [place] [address], [address], 04/08/2019 21:07:57 04/08/2004/08/2019 CMP, serum or plasm a alkaline phosphatase 84 IU/L 18-210 normal Not Available [address] [place] [address], [address], 04/08/2019 21:07:57 04/08/2004/08/2019 CMP, serum or plasm a SGOT (AST) 21 IU/L 15-37 normal Not Available [address] [place] [address], [address], 04/08/2019 21:07:57 04/08/2004/08/2019 CMP, serum or plasm a bilirubin total 0.3 mg/dL 0.2-1. 3 normal Not Available [address] [place] [address], [address], 04/08/2019 21:07:57 04/08/2004/08/2019 CMP, serum or plasm a SGPT (ALT) 14 IU/L 13-56 normal Not Available [address] [place] [address], [address], 04/08/2019 21:07:57 04/08/2004/08/2019 CMP, serum or plasm a sodium 138 mEq/L 135-14 5 normal Not Available [address] [place] [address], [address], 04/08/2019 21:07:57 04/08/20 19 04/08/2019 CMP, serum or plasm a potassium 3.9 mEq/L 3.5-5. 1 normal Not Available [address] [place] [address], [address], 04/08/2019 21:07:57 04/08/20 19 04/08/2019 CMP, serum or plasm a chloride 99 mEq/L 98-112 normal Not Available [address] [place] [address], [address], 04/08/2019 21:07:57 04/08/20 19 04/08/2019 CMP, serum or plasm a CO2 32 mEq/L 20-32 normal Not Available [address] [place] [address], [address], 04/08/2019 21:07:57 04/08/20 19 04/08/2019 CMP, serum or plasm a anion gap 7 mEq/L 5-15 normal Not Available [address] [place] [address], [address], 04/08/2019 21:07:57 04/08/20 19 04/08/2019 TSH, serum or plasm a thyroid stimulating hormone 1.07 uIU/m L 0.36-3 .74 normal Not Available [address] [place] [address], [address], 04/08/2019 21:07:59 Result Notes None recorded. Problems Name Problem SNOMED Code Status Onset Date Resolution Date Notes Provider Name and Address Organization Details Recorded Time Congestive heart failure 01074746 Active 2019 Ruben zaman, [place] - PMA/WIP 0 16:10:39 Acute myocardial infarction 93115761 Active 2019 Ruben Ervin null, [place] - PMA/WIP 0 16:10:50 Implantation of internal cardiac defibrillator Active 2019 Ruben zaman, [place] - PMA/WIP 0 16:11:08 Alcoholism 5861734 Active 2019 Ruben zaman, [place] - PMA/WIP 0 16:11:31 Opioid abuse 6075294 Active 2019 Ruben Ervin null, [place] - PMA/WIP 0 16:11:54 Scoliosis deformity of spine 864254817 Active 2019 Ruben zaman, [place] - PMA/WIP 0 16:12:07 Osteoporosis 62708746 Active 2019 Ruben zaman, [place] - PMA/WIP 0 16:12:18 Alcohol withdrawal-ind uced convulsion 765016501 Active 2019 Ruben zaman, [place] - PMA/WIP 0 16:15:24 Deep venous thrombosis 026471951 Active 2019 clot in leg Ruben zaman, [place] - PMA/WIP 0 16:15:51 Notes:The patient, Mirna Gallegos , is a 62 year old female PMHx of seizures (EtOH 1985), [place], s/p cardiac catheterization (1995), s/p AICD placement and left lower extremity DVT reportedly no longer on anticoagulation seen on Dec 21, 2017 for stated complaint of A Personal Matter. [Patient comes into the emergency department looking for admission to [facility] for alcohol use. Patient reports drinking a box of wine over the course of 2 days. She reports drinking daily for the past many years. She denies any history of withdrawal seizures or delirium tremens. She does report frequent history of falls which she attributes to her scoliosis and not to her drinking. She complains of left lower extremity swelling along with bruising to the anterior tibial area. She is unsure if she fell recently. She notes a history of DVTs in her left leg but is no longer taking her Coumadin. She denies headaches, dizziness, blurred vision, neck or back pain chest pain or shortness of breath, abdominal pain, paresthesias or weakness, or other systemic complaints.] Problem Notes None recorded. Medical Equipment None Reported. Allergies No known drug allergies Medications Name Sig Start Date Stop Date Status Note LastModified by Organization Details LastModified Time fluoxetine 40 mg capsule 12/10 completed Not Available Not Available Not Available amoxicillin 500 mg capsule 12/10 completed Not Available Not Available Not Available furosemide 40 mg tablet 12/10 completed Not Available Not Available Not Available clonidine HCl 0.1 mg tablet 12/10 completed Not Available Not Available Not Available gabapentin 600 mg tablet 12/10 completed Not Available Not Available Not Available torsemide 20 mg tablet Take 2 tablets twice a day by oral route. active Not Available Not Available No t Available trazodone 50 mg tablet 12/10 completed Not Available Not Available Not Available ibuprofen 800 mg tablet Take 1 tablet 3 times a day by oral route for 30 days. 12/10 completed Not Available Not Available Not Available fluoxetine 10 mg tablet 12/10 completed Not Available Not Available Not Available gabapentin 400 mg capsule 12/10 completed Not Available Not Available Not Available valacyclovir 500 mg tablet 12/10 completed Not Available Not Available Not Available sulfamethoxa zole 800 mg-trimethop rim 160 mg tablet 12/10 completed Not Available Not Available Not Available trifluridine 1 % eye drops 12/10 completed Not Available Not Available Not Available prednisolone acetate 1 % eye drops,suspen gildardo active Not Available Not Available Not Available IBU 600 mg tablet 12/10 completed Not Available Not Available Not Available gabapentin 800 mg tablet active Not Available Not Available Not Available cephalexin 500 mg capsule 12/10 completed Not Available Not Available Not Available tobramycin 0.3 % eye drops 12/10 completed Not Available Not Available Not Available fluoromethol one 0.1 % eye drops,suspen gildardo 12/10 completed Not Available Not Available Not Available gabapentin 300 mg capsule 12/10 completed Not Available Not Available Not Available omeprazole 20 mg capsule,daiana yed release bid prn active Not Available Not Available Not Available hydroxyzine HCl 25 mg tablet 12/10 completed Not Available Not Available Not Available furosemide 20 mg tablet 12/10 completed Not Available Not Available Not Available gabapentin 100 mg capsule 12/10 completed Not Available Not Available Not Available diazepam 10 mg tablet Take 1 tablet twice a day by oral route for 30 days. 12/10 completed Not Available Not Available Not Available levofloxacin 750 mg tablet 12/10 completed Not Available Not Available Not Available ondansetron 4 mg disintegrati ng tablet 12/10 completed Not Available Not Available Not Available fluoxetine 20 mg capsule 12/10 completed Not Available Not Available Not Available tobramycin 0.3 %-dexamethas one 0.1 % eye drops,suspen gildardo 12/10 completed Not Available Not Available Not Available neomycin 3.5 mg/g-polymyx in B 10,000 unit/g-dexam eth 0.1 % eye oint active Not Available Not Available Not Available escitalopram 10 mg tablet one per day active Not Available Not Available No t Available buprenorphin e 8 mg-naloxone 2 mg sublingual tablet 24mg a day active Not Available Not Available No t Available moxifloxacin 0.5 % eye drops 12/10 completed Not Available Not Available Not Available Sotalol AF 120 mg tablet 1/2 po bid active Not Available Not Available No t Available acamprosate 333 mg tablet,delay ed release 12/10 completed Not Available Not Available Not Available Forteo 20 mcg/dose (600 mcg/2.4 mL) subcutaneous pen injector 12/10 completed Not Available Not Available Not Available Zirgan 0.15 % eye gel 12/10 completed Not Available Not Available Not Available buprenorphin e 8 mg-naloxone 2 mg sublingual film 12/10 completed Not Available Not Available Not Available Eliquis 5 mg tablet active Not Available Not Available Not Available Zubsolv 5.7 mg-1.4 mg sublingual tablet 12/10 completed Not Available Not Available Not Available Narcan 4 mg/actuation nasal spray active Not Available Not Available Not Available Lotemax SM 0.38 % eye gel drops active Not Available Not Available No t Available Vitals Date Recorded Body height Body mass index (BMI) Body weight Provider Name and Address Organization Details Last Updated DateTime 12/11/2019 152.4 cm 29.3 kg/m2 04491.86 g Ruben Arcadio [place] - PMA/WIP 12/11/2019 16:02:44 Social History Question Answer Notes LastModified by Organizat ion Details LastModified Time Tobacco Smoking Status Former Smoker quite 1985 Not Available [employer] 06/09/2020 03:13:01 How Many Years Have You Smoked Tobacco? 5 [id number] Information not available 06/09/2020 Sex: Unknown Functional Status None recorded. Mental Status None recorded. Family History Relationship Description Onset Age of this Age Resolved Age Notes LastModified by Organization Details LastModified Time Father Alcohol abuse [email or web address] Not available 2019 16:17:19 Maternal Grandfather Alcohol abuse [email or web address] Not available 2019 16:17:19 Sister Alcohol abuse [email or web address] Not available 2019 16:17:19 Brother Alcohol abuse [email or web address] Not available 2019 16:17:19 Notes:AMi in uncles Sub Abus e - Medical History No medical history recorded. Gynecological HistoryNo gynecological history recorded. Obstetrics History GPAL:G 0 P 0 0 0 0 Past Encounters Encounter ID Performer Location Encounter Start Date Encounter Closed Date Diagnosis/Indication Diagnosis SNOMED-CT Code Diagnosis ICD10 Code Diagnosis Note [id number] [address] [place] [address] 11/20/2018 14:45:02 11/21/2018 07:49:35 [id number] Boom Vizcaino [facility] [address] [place] [address] 04/08/2019 13:47:24 04/09/2019 07:19:30 [id number] [address] [place] [address] 12/11/2019 14:38:29 12/15/2019 09:24:06 Osteoporosis 42779971 M81.0 Scoliosis deformity of spine 913533449 M41.9 Acute myoc ardial infarction 18328182 I21.9 Health Concerns Section Related Observation LastModified by Organization Detai ls LastModified Time None Recorded Concern Status LastModified by Organization Details LastModified Time None Recorded Advance Directives Directive None Recorded Payers Encounter Date Sequence Insurance Name Policy Number Policy Collazo Covered Member ID Collazo Member ID Guarantor Name 11/20/2018 2 [place] [facility] Clarisa Leydet [id number] Mirna P Leydet 11/20/2018 1 [place] [employer] Mirna P Leydet [id number] Mirna Clarisa Leydet 04/08/2019 2 [place] Mirna Clarisa Leydet [id number] Mirna P Leydet 04/08/2019 1 [place] [employer] Mirna P Leydet [id number] Mirna P Leydet 12/11/2019 2 [place] Mirna P Leydet [id number] Mirna Mckenna Leydet 12/11/2019 1 [place] [employer] Mirna Clarisa Dwyer [id number] Mirna Dwyer Notes Date Note Type Note Provider Name and Address Organization Details Recorded Time 04/08/2019 text/html lonng hx of multiple medical problems Nur Carrillo zaman MA - PMA/WIP 04/08/2019 16:24:32 12/11/2019 text/html calling in for a refill on the gabapentin has a long hx of both ETOH and apparently opiods as well jia suoxone 24mg a day last drink was dec 26 2017 but [employer] shows late may confusing hx where she has been living in the [place] and about 6 different address populated the [facility] report she is Name ID Gender Address Mirna Gonzalezdeborah 1955 1 Female [address] [place] [address] Mirna Carlosdeborah 1955 2 Female [address] [place] [address] Mirna Carlosdeborah 1955 3 [address] [place] [address] Mirna Carlosdeborah 1955 4 Female [address] [place] [address] Mirna Carlosdeborah 1955 [address] [place] [address] Mirna Dwyer 1955 6 Female [address] [place] [address] 020 Buprenorphin-Nalox on 8-2 Mg Sl 42.00 14 [id number] (8424) 0/0 24.00 mg [place] 020 Buprenorphin-Nalox on 8-2 Mg Sl 21.00 7 [id number] (8424) 0/0 24.00 mg [place] 11/17/2019101 020 Gabapentin 300 Mg Capsule 90.00 30 Ca [id number] (4281) 08/27 [place] 11/17/201911008 019 Gabapentin 600 Mg Tablet 90.00 30 Ca Iyo327006Lzi (4281) 08/26 [place] 11/11/201950 020 Buprenorphin-Nalox on 8-2 Mg Sl 21.00 7 [id number] (8424) 0/0 24.00 mg [place] 020 Buprenorphin-Nalox on 8-2 Mg Sl 21.00 7 [id number] (8424) 0/0 24.00 mg [place] 020 Buprenorp-Nalox 8-2 Mg Sl Film 21.00 7 [id number] (8424) 0/0 24.00 mg [place] 019 Gabapentin 800 Mg Tablet 90.00 30 [id number] (1679) 5 Comm [facility] 020 Buprenorphin-Nalox on 8-2 Mg Sl 21.00 7 [id number] (8424) 0/0 24.00 mg [place] 019 Gabapentin 600 Mg Tablet 90.00 30 Ca Wex708240Fhu (4281) 0/ Comm [facility] 020 Gabapentin 300 Mg Capsule 90.00 30 Ca Mia696551Lih (4281) 0/2 Comm [facility] 020 Buprenorphin-Nalox on 8-2 Mg Sl 42.00 14 Ross [id number] (8424) 0/0 24.00 mg [place] 019 Gabapentin 600 Mg Tablet 90.00 30 Ca Uvp58174Jap (5929) 2 Comm [facility] 020 Gabapentin 300 Mg Capsule 90.00 30 Ca Vau483218Htb (4234) 0/3 Comm [facility] 020 Buprenorphin-Nalox on 8-2 Mg Sl 63.00 21 Ross [id number] (4234) 0/0 24.00 mg Comm [facility] 020 Buprenorphin-Nalox on 8-2 Mg Sl 42.00 14 Ross Ajz760654Quq (4234) 0/0 24.00 mg Comm [facility] 019 Gabapentin 600 Mg Tablet 90.00 30 Ca Xda11558Vpo (5929) 1 [place] 019 Diazepam 10 Mg Tablet 60.00 30 El [id number] (4801) 2/2 2.00 LME [place] 019 Buprenorphin-Nalox on 8-2 Mg Sl 84.00 28 Ross [id number] (4234) 0/0 24.00 mg [place] 019 Gabapentin 800 Mg Tablet 90.00 30 El [id number] (7184) 4 [place] 019 Gabapentin 600 Mg Tablet 90.00 30 Ca Yhu82511Lja (5929) 0 [place] 019 Buprenorphin-Nalox on 8-2 Mg Sl 42.00 14 Ca O'z705258Nwh (4234) 0/0 24.00 mg Comm [facility] 019 Buprenorphin-Nalox on 8-2 Mg Sl 42.00 14 Ross Ibw179695Ipd (4234) 0/0 24.00 mg Comm [facility] 019 Gabapentin 600 Mg Tablet 90.00 30 Ca Rkx381003Gtq (4234) 0/ [place] 019 Gabapentin 300 Mg Capsule 90.00 30 Ca Cso071929Vkq (4234) 1/ Comm [facility] 019 Buprenorphin-Nalox on 8-2 Mg Sl 42.00 14 Ross Gpp962009Fhn (4234) 0/0 24.00 mg Comm [facility] 019 Buprenorphin-Nalox on 8-2 Mg Sl 42.00 14 Ross [id number] (4234) 0/0 24.00 mg [place] 019 Gabapentin 800 Mg Tablet 90.00 30 El [id number] (5393) 3/5 [place] 019 Gabapentin 300 Mg Capsule 90.00 30 Ca Mnq953565Mul (4234) 0/3 [place] 019 Gabapentin 600 Mg Tablet 90.00 30 Ka Dcx77029Tms (5929) 0/0 [place] 019 Diazepam 10 Mg Tablet 60.00 30 El [id number] (4801) 1/2 2.00 L[place] 019 Buprenorphin-Nalox on 8-2 Mg Sl 41.00 13 Ross [id number] (4234) 0/0 25.23 mg [place] 019 Buprenorphin-Nalox on 8-2 Mg Sl 42.00 14 Ross [id number] (4234) 0/0 24.00 mg [place] 019 Gabapentin 600 Mg Tablet 90.00 30 Ca Rnv934570Nsf (4234) 0/0 [place] 019 Gabapentin 300 Mg Capsule 90.00 30 Ca Dym159696Agu (4234) 0/0 [place] 019 Zubsolv 5.7-1.4 Mg Tablet Sl 42.00 14 Ka Mcf660639Shq (4234) 0/0 17.10 mg [place] 019 Zubsolv 5.7-1.4 Mg Tablet Sl 27.00 14 Ross Rpk263346Tge (4234) 0/0 10.99 mg [place] 019 Zubsolv 5.7-1.4 Mg Tablet Sl 15.00 5 Ross Qnd243169Ysw (4234) 0/0 17.10 mg [place] 019 Gabapentin 800 Mg Tablet 90.00 30 El [id number] (9389) 2/5 [place] 019 Diazepam 10 Mg Tablet 60.00 30 El [id number] (4801) 0/2 2.00 L[place] 019 Gabapentin 600 Mg Tablet 90.00 30 Ka Pox38509Jai (5929) 0/0 [place] 019 Buprenorp-Nalox 8-2 Mg Sl Film 42.00 14 Ross [id number] (4234) 0/0 24.00 mg Comm Ins [place] 019 Buprenorp-Nalox 8-2 Mg Sl Film 42.00 14 Ross Gas47690Jpz (5929) 0/0 24.00 mg Comm Ins [place] 019 Gabapentin 600 Mg Tablet 90.00 30 Ca Tdd04636Hng (5929) 2/2 Comm [place] 019 Buprenorp-Nalox 8-2 Mg Sl Film 42.00 14 Ross Uge80787Swt (5929) 0/0 24.00 mg Comm Ins [place] 019 Buprenorp-Nalox 8-2 Mg Sl Film 42.00 14 Ross Fic92176Xba (5929) 0/0 24.00 mg [place] 019 Gabapentin 600 Mg Tablet 90.00 30 Ca Ggn51598Nvt (5929) 1/2 [place] 019 Gabapentin 800 Mg Tablet 90.00 30 El [id number] (1679) 08/30 [place] 019 Buprenorp-Nalox 8-2 Mg Sl Film 42.00 14 Ro Pje45822Lqg (5929) 0/0 24.00 mg Comm [place] 019 Buprenorp-Nalox 8-2 Mg Sl Film 42.00 14 Ross Ovc84563Lid (5929) 0/0 24.00 mg [place] 019 Gabapentin 600 Mg Tablet 90.00 30 Ca Niw35908Mut (5929) 0/2 [place] 019 Suboxone 8 Mg-2 Mg Sl Film 42.00 14 Ross [id number] (5929) 0/0 24.00 mg Medicare [place] 019 Buprenorp-Nalox 8-2 Mg Sl Film 42.00 14 Ross [id number] (5929) 0/0 24.00 mg [place] 019 Gabapentin 600 Mg Tablet 90.00 30 Ca [id number] (5929) 0/ Medicare [place] 019 Gabapentin 300 Mg Capsule 90.00 30 Ca [id number] (5929) 0/3 Medicare [place] 019 Buprenorp-Nalox 8-2 Mg Sl Film 42.00 14 Ross [id number] (5929) 0/0 24.00 mg [place] 019 Buprenorp-Nalox 8-2 Mg Sl Film 42.00 14 Ross [id number] (5929) 0/0 24.00 mg [place] 019 Gabapentin 800 Mg Tablet 90.00 30 El [id number] (1679) 0/5 Comm [facility] [place] 019 Gabapentin 400 Mg Capsule 42.00 14 Ca [id number] (5929) 0/0 [place] 019 Buprenorp-Nalox 8-2 Mg Sl Film 42.00 14 Ross [id number] (5929) 0/0 24.00 mg [place] 019 Buprenorp-Nalox 8-2 Mg Sl Film 42.00 14 Feli [id number] (5929) 0/0 24.00 mg [place] 019 Suboxone 8 Mg-2 Mg Sl Film 42.00 14 Feli [id number] (5929) 0/0 24.00 mg [place] 019 Suboxone 8 Mg-2 Mg Sl Film 42.00 14 Feli [id number] (5929) 0/0 24.00 mg [place] 019 Suboxone 8 Mg-2 Mg Sl Film 42.00 14 Feli [id number] (5929) 0/0 24.00 mg [place] 019 Suboxone 8 Mg-2 Mg Sl Film 42.00 14 Feli [id number] (5929) 0/0 24.00 mg [place] 019 Gabapentin 800 Mg Tablet 270.00 90 Ca [id number] (5929) 0/1 [place] 018 Gabapentin 800 Mg Tablet 30.00 10 Ca [id number] (5929) 12/28 Medicare [place] 018 Suboxone 8 Mg-2 Mg Sl Film 34.00 11 Feli [id number] (5929) 0/0 24.73 mg [place] 018 Gabapentin 800 Mg Tablet 30.00 10 Ca [id number] (5929) 11/28 [place] 018 Gabapentin 800 Mg Tablet 30.00 10 Ca [id number] (5929) 10/28 [place] 018 Suboxone 8 Mg-2 Mg Sl Film 9.00 28 Ross [id number] (5929) 0/0 2.57 mg Private Pay [place] 018 Gabapentin 800 Mg Tablet 30.00 10 Ca [id number] (5929) 09/30 [place] 018 Suboxone 8 Mg-2 Mg Sl Film 84.00 28 Ross [id number] (5929) 0/0 24.00 mg [place] 018 Gabapentin 800 Mg Tablet 30.00 10 Ca [id number] (5929) 08/30 [place] 018 Suboxone 8 Mg-2 Mg Sl Film 42.00 14 Feli [id number] (5929) 0/0 24.00 mg [place] 018 Gabapentin 800 Mg Tablet 30.00 10 Ca [id number] (5929) 0 [place] 018 Gabapentin 600 Mg Tablet 90.00 30 Ca [id number] (5929) 2 Medicare [place] 018 Suboxone 8 Mg-2 Mg Sl Film 84.00 28 Feil [id number] (5929) 0/0 24.00 mg [place] 018 Gabapentin 600 Mg Tablet 90.00 30 Ca [id number] (5929) 1/ [place] 018 Suboxone 8 Mg-2 Mg Sl Film 42.00 14 Ka [id number] (5929) 0/0 24.00 mg [place] 018 Suboxone 8 Mg-2 Mg Sl Film 42.00 14 Feli [id number] (5929) 0/0 24.00 mg [place] 018 Gabapentin 600 Mg Tablet 90.00 30 Ca [id number] (5929) 0/5 [place] 018 Gabapentin 300 Mg Capsule 90.00 30 Ca [id number] (5929) 0/0 [place] 018 Suboxone 8 Mg-2 Mg Sl Film 42.00 14 Feli [id number] (5929) 0/0 24.00 mg [place] 018 Suboxone 8 Mg-2 Mg Sl Film 42.00 14 Feli [id number] (5929) 0/0 24.00 mg [place] 018 Gabapentin 300 Mg Capsule 90.00 30 Ca [id number] (5929) 0/0 [place] 018 Suboxone 8 Mg-2 Mg Sl Film 42.00 14 Feli [id number] (5929) 0/0 24.00 mg [place] 018 Suboxone 8 Mg-2 Mg Sl Film 35.00 14 Feli [id number] (5929) 0/0 20.00 mg [place] 018 Gabapentin 100 Mg Capsule 180.00 30 Ru [id number] (0061) 08/27 [place] 018 Suboxone 8 Mg-2 Mg Sl Film 14.00 7 Feli [id number] (5929) 0/0 16.00 mg [place] 018 Suboxone 8 Mg-2 Mg Sl Film 10.00 5 Feli [id number] (5929) 0/0 16.00 mg [place] 02/23/ 018 Suboxone 8 Mg-2 Mg Sl Film 10.00 5 Be [id number] (5929) 0/0 16.00 mg [place] 02/19/2018606/21/10 018 Suboxone 8 Mg-2 Mg Sl Film 14.00 7 Ro [id number] (3996) 0/0 16.00 mg Comm Ins [place] 018 Suboxone 8 Mg-2 Mg Sl Film 14.00 7 Ro [id number] (3996) 0/0 16.00 mg Comm Ins [place] 018 Suboxone 8 Mg-2 Mg Sl Film 14.00 7 Ma [id number] (4234) 0/0 16.00 mg [place] 018 Gabapentin 100 Mg Capsule 180.00 30 Ru [id number] (0061) 0/2 [place] 018 Suboxone 8 Mg-2 Mg Sl Film 21.00 7 Ma [id number] (4234) 0/0 24.00 mg Medicare [place] Ruben zaman [place] - CHAVA/WIP 12/11/2019 16:36:19 OBGyn Episode No OBEpisode recorded.
== END 2024-10-13 13:43 | disposition home or self-care (01) ==
PROVIDERS: PCP Family Medicine; Visit Provider Internal Medicine
DX: I47.20 Ventricular tachycardia, unspecified (principal); Z95.2 Presence of prosthetic heart valve; I48.19 Other persistent atrial fibrillation; I50.32 Chronic diastolic (congestive) heart failure; I25.10 Atherosclerotic heart disease of native coronary artery without angina pectoris
CPT/HCPCS: 93010; 93282; 99214

== ENCOUNTER → 2024-10-13 13:02 | Outpatient (BNVA) | payer OTHER, MEDICAID, SELFPAY | PROVIDERS: PCP Family Medicine; Visit Provider Internal Medicine | DX: I47.20 Ventricular tachycardia, unspecified (principal); I48.19 Other persistent atrial fibrillation; I50.32 Chronic diastolic (congestive) heart failure; I25.10 Atherosclerotic heart disease of native coronary artery without angina pectoris; E78.5 Hyperlipidemia, unspecified; Z79.01 Long term (current) use of anticoagulants; Z95.2 Presence of prosthetic heart valve; Z86.718 Personal history of other venous thrombosis and embolism | CPT/HCPCS: 93005; 99212 ==

== ENCOUNTER 2024-10-13 13:47 | Outpatient (REF) | payer MEDICARE, MEDICAID, SELFPAY ==
--- OUTSIDE RECORDS SUMMARY | 2024-10-13 14:48 | XMS_ITS | Clinical Summary ---
Author Organization [facility], Address [address] [place] [address] [place] [address] Phone Care Team Providers Care Keg Filler Name Role Phone Mamta Martin PA-C Primary Care Provider [phone] Allergies No known active allergies Medications amoxicillin [...] patient's age to complete this topic Insurance [facility] JAY VIDAL [id number] Care Teams Keg Filler Relationship Specialty Start Date End Date Mamta Martin PA-C [address] [place] [id number] PCP - General Family Medicine 09/09/20
--- OUTSIDE RECORDS SUMMARY | 2024-10-13 14:48 | XMS_ITS | Encounter Summary ---
Author Organization [employer] Address [address] [facility] 7 [place] [address] Care Team Providers Care Die Attacher Name Role Phone Unavailable Primary Care Provider Unavailabl e Encounter Details Date Type Department Care Team (Latest Contact Info) Description 11/07/2020 Abstract [facility] CONVERSIONS Dental, Provider, DDS Social History [...]
--- OUTSIDE RECORDS SUMMARY | 2024-10-13 14:48 | XMS_ITS | Encounter Summary ---
Author Organization [employer] Address [address] [facility] 7 [place] [address] Care Team Providers Care Splash Line Operator Name Role Phone Unavailable Primary Care Provider Unavailabl e Encounter Details Date Type Department Care Team (Latest Contact Info) Description 08/14/2019 Abstract [facility] CONVERSIONS Dental, Provider, DDS Social History Tobacco [...]
--- OUTSIDE RECORDS SUMMARY | 2024-10-13 14:48 | XMS_ITS | Clinical Summary ---
Author Organization [employer] Address [address] [facility] [address]t [place] [address] Care Team Providers Care Cable Spooler Name Role Phone Unavailable Primary Care Provider [...] patient's age to complete this topic Insurance [facility] STAND ADULT
--- OUTSIDE RECORDS SUMMARY | 2024-10-13 14:48 | XMS_ITS | Continuity of Care Document ---
Author Organization [facility] Address [address] [place] [address] Phone Care Team Providers Care Drywall Contractor Name Role Phone Unavailable Unavailable Unavailable Advance Directives Directive Yes / No Effective Date File Name No Information Encounters Encounter Description Practice Location Reason(s) For Visit Diagnoses Date Provider Providers Copied on Encounter [facility], [address], [place], [place], [id number], [place] tel:[phone] Imported From Previous EHR Unspecified depressive disorderUnspecif ied anxiety disorder No Information As per patient privacy policy some of the clinical information may not be visible. Family History Family Member Type Diagnosis Age At Onset No Information Payers Payer name Insurance type Covered green party ID Authoriza tion(s) No Information Social History [...]
[2024-10-13 15:42] LABS: Alanine Aminotransferase 18 U/L (0-31); Albumin Level 4.7 g/dL (3.5-5.0); Alkaline Phosphatase 71 U/L (39-117); Anion Gap 13 (12-20); Aspartate Amino Transferase 34 U/L (5-31); Bilirubin Direct 0.1 mg/dL (0.0-0.5); Bilirubin Total 0.4 mg/dL (0.0-1.0); Blood Urea Nitrogen 28 mg/dL (9-16); Calcium 9.7 mg/dL (8.4-10.2); Carbon Dioxide 34 mmol/L (22-29); Chloride 96 mmol/L (96-108); Cholesterol 199 mg/dL (<200); Estimated Glomerular Filt Rate 49; Glucose Random 90 mg/dL (60-115); HDL Cholesterol 69 mg/dL (>40); LDL Cholesterol Calculated 112 mg/dL (<100); Potassium 3.7 mmol/L (3.3-5.1); Sodium 139 mmol/L (135-145); Triglycerides 94 mg/dL (<150)
== END 2024-10-13 13:48 | disposition home or self-care (01) ==
LOC: HO.LAB 13:47
PROVIDERS: PCP Family Medicine; Visit Provider Internal Medicine
DX: I25.10 Atherosclerotic heart disease of native coronary artery without angina pectoris (principal); I50.32 Chronic diastolic (congestive) heart failure; I47.20 Ventricular tachycardia, unspecified; E78.5 Hyperlipidemia, unspecified
CPT/HCPCS: 36415; 80048; 80061; 80076

== ENCOUNTER → 2024-12-14 23:59 | Outpatient (BNV) | payer MEDICARE, MEDICAID, SELFPAY ==
--- NOTE | 2024-12-22 12:54 | MHC.OFFVIS ---
Intake Visit Reasons: remote HF monitoring- [employer] Allergies No Known Allergies Allergy (Verified 01/21/24 13:35) [facility] Medical History (Updated 10/13/24 @ 13:27 by Ok Macias MD) Incomplete right bundle branch block Scoliosis (and kyphoscoliosis), idiopathic PITTS (dyspnea on exertion) Restrictive lung disease Atherosclerotic cardiovascular disease Persistent atrial fibrillation Chronic heart failure with preserved ejection fraction Ventricular tachycardia Cardiac defibrillator in place Surgical History Status post mitral valve replacement with bioprosthetic valve Status post aorto-coronary artery bypass graft S/P transcatheter mitral valve replacement (TMVR) History of open heart surgery Family History Mother No problems noted. Father No problems noted. Social History Alcohol intake: never Patient Tobacco Use Status: Former Tobacco user Office Procedures Cardiac Device Check Cardiac Device Check Details: Date of service- 12/14/2024; based on impedance data and physiological variables, there is no evidence of worsening congestive heart failure. [id number] Cardiac Device Interrogation, cardio physiologic monitor Procedure code (CPT) selection complete Assessment & Plan Assessment & Plan (1) ICD (implantable cardioverter-defibrillator) in place: Code(s): Z95.810 - Presence of automatic (implantable) cardiac defibrillator Category: Medical (2) Persistent atrial fibrillation: Code(s): I48.19 - Other persistent atrial fibrillation Category: Medical (3) Ventricular tachycardia: Code(s): I47.20 - Ventricular tachycardia, unspecified Category: Medical Plan x Coding Level of Care Code Procedure Only Diagnoses ICD (implantable cardioverter-defibrillator) in place Z95.810 Persistent atrial fibrillation I48.19 Ventricular tachycardia I47.20 CPT Codes Cardiac Device Check - Cardiac Device 15: [id number] Cardiac Device Interrogation, cardio physiologic monitor ([id number])
== END ==
PROVIDERS: PCP Nurse Practitioner Family; Visit Provider Internal Medicine
DX: I48.19 Other persistent atrial fibrillation (principal); I47.20 Ventricular tachycardia, unspecified; Z95.810 Presence of automatic (implantable) cardiac defibrillator
CPT/HCPCS: 93297

== ENCOUNTER → 2024-12-14 23:59 | Outpatient (BNV) | payer MEDICARE, MEDICAID, SELFPAY ==
--- NOTE | 2024-12-22 12:55 | A.OFFVIS_ITS ---
Intake Visit Reasons: Remote ICD check- [employer] Allergies No Known Allergies Allergy (Verified 01/21/24 13:35) [facility] Medical History (Updated 10/13/24 @ 13:27 by Ok Macias MD) Incomplete right bundle branch block Scoliosis (and kyphoscoliosis), idiopathic PITTS (dyspnea on exertion) Restrictive lung disease Atherosclerotic cardiovascular disease Persistent atrial fibrillation Chronic heart failure with preserved ejection fraction Ventricular tachycardia Cardiac defibrillator in place Surgical History Status post mitral valve replacement with bioprosthetic valve Status post aorto-coronary artery bypass graft S/P transcatheter mitral valve replacement (TMVR) History of open heart surgery Family History Mother No problems noted. Father No problems noted. Social History Alcohol intake: never Patient Tobacco Use Status: Former Tobacco user Office Procedures Cardiac Device Check Cardiac Device Check Details: Date of service 12/14/2024; Battery life 14 years; normal lead parameters; no treated VT/VF; normal ICD function. [id number] Cardiac Interrogation, implant defibrillator w/interim Procedure code (CPT) selection complete Assessment & Plan Assessment & Plan (1) ICD (implantable cardioverter-defibrillator) in place: Code(s): Z95.810 - Presence of automatic (implantable) cardiac defibrillator Category: Medical (2) Ventricular tachycardia: Code(s): I47.20 - Ventricular tachycardia, unspecified Category: Medical Plan x Coding Level of Care Code Procedure Only Diagnoses ICD (implantable cardioverter-defibrillator) in place Z95.810 Ventricular tachycardia I47.20 CPT Codes Cardiac Device Check - Cardiac Device 13: [id number] Cardiac Interrogation, implant defibrillator w/interim ([id number])
== END ==
PROVIDERS: PCP Nurse Practitioner Family; Visit Provider Internal Medicine
DX: I47.20 Ventricular tachycardia, unspecified (principal); Z95.810 Presence of automatic (implantable) cardiac defibrillator
CPT/HCPCS: 93295

== ENCOUNTER → 2025-03-15 23:59 | Outpatient (BNV) | payer MEDICARE, MEDICAID, SELFPAY ==
--- NOTE | 2025-03-18 16:11 | MHC.OFFVIS ---
Intake Visit Reasons: Remote ICD check- [employer] Allergies No Known Allergies Allergy (Verified 01/21/24 13:35) [facility] Medical History (Updated 10/13/24 @ 13:27 by Ok Macias MD) Incomplete right bundle branch block Scoliosis (and kyphoscoliosis), idiopathic PITTS (dyspnea on exertion) Restrictive lung disease Atherosclerotic cardiovascular disease Persistent atrial fibrillation Chronic heart failure with preserved ejection fraction Ventricular tachycardia Cardiac defibrillator in place Surgical History Status post mitral valve replacement with bioprosthetic valve Status post aorto-coronary artery bypass graft S/P transcatheter mitral valve replacement (TMVR) History of open heart surgery Family History Mother No problems noted. Father No problems noted. Social History Alcohol intake: never Patient Tobacco Use Status: Former Tobacco user Office Procedures Cardiac Device Check Cardiac Device Check Details: Date of service 03/15/2025; Battery life >13 years; normal lead parameters; no treated VT/VF; normal ICD function. [id number] Cardiac Interrogation, implant defibrillator w/interim Procedure code (CPT) selection complete Assessment & Plan Assessment & Plan (1) ICD (implantable cardioverter-defibrillator) in place: Code(s): Z95.810 - Presence of automatic (implantable) cardiac defibrillator Category: Medical (2) Ventricular tachycardia: Code(s): I47.20 - Ventricular tachycardia, unspecified Category: Medical (3) Persistent atrial fibrillation: Code(s): I48.19 - Other persistent atrial fibrillation Category: Medical Plan x Coding Level of Care Code Procedure Only Diagnoses ICD (implantable cardioverter-defibrillator) in place Z95.810 Ventricular tachycardia I47.20 Persistent atrial fibrillation I48.19 CPT Codes Cardiac Device Check - Cardiac Device 13: [id number] Cardiac Interrogation, implant defibrillator w/interim ([id number])
== END ==
PROVIDERS: PCP Nurse Practitioner Family; Visit Provider Internal Medicine
DX: I47.20 Ventricular tachycardia, unspecified (principal); Z95.810 Presence of automatic (implantable) cardiac defibrillator; I48.19 Other persistent atrial fibrillation
CPT/HCPCS: 93295

== ENCOUNTER 2025-04-15 13:45 | Outpatient (AMB) | payer MEDICARE, MEDICAID, SELFPAY ==
[2025-04-15 13:47] VITALS: BP 116/60; PULSE 53; BMI 27.1
--- NOTE | 2025-04-15 13:47 | MHC.OFFVIS ---
Vital Signs 04/15/25 13:47 Height 5 ft Weight 138 lb 14.259 oz BMI 27.1 BP 116/60 Blood Pressure Location Lt brachial Position Sitting Pulse 53 Pulse Source Monitor Intake Visit Reasons: 6m follow up Allergies No Known Allergies Allergy (Verified 01/21/24 13:35) Medication List - Last Reconciled 04/15/25 by Ok Macias MD apixaban (Eliquis) 5 mg PO BID buprenorphine-naloxone 8-2 mg 1.5 tabs sublingual DAILY fluoxetine 20 mg PO DAILY gabapentin 800 mg PO TID moxifloxacin 0.5% 1 drp ophthalmic-Right DAILY sotalol 60 mg PO BID torsemide 40 mg (2 x 20 mg) PO BID HPI Comments Details: Mirna returns for follow-up. Previously, followed up at [facility] but then switched to us. Long and complicated cardiac history. She has a history of ventricular tachycardia causing cardiac arrest in 1995. At that time, she had an ICD placed. Generator change in 2002, 2008. She is maintained on Sotalol for the ventricular tachycardia. She also has a history of mitral valve prolapse, status post bioprosthetic mitral valve replacement 2007 at [facility]. Also had tricuspid valve repair, LA appendage ligation, CABG. 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 Has history of DVT on Eliquis. Chronic atrial fibrillation. Also listed to have chronic heart failure with preserved ejection fraction. Overall, she feels good. No new concerns. She states she has not been taking Eliquis recently because of taking Motrin for back pain. [facility] Medical History (Updated 10/13/24 @ 13:27 by Ok Macias MD) Incomplete right bundle branch block Scoliosis (and kyphoscoliosis), idiopathic PITTS (dyspnea on exertion) Restrictive lung disease Atherosclerotic cardiovascular disease Persistent atrial fibrillation Chronic heart failure with preserved ejection fraction Ventricular tachycardia Cardiac defibrillator in place Surgical History Status post mitral valve replacement with bioprosthetic valve Status post aorto-coronary artery bypass graft S/P transcatheter mitral valve replacement (TMVR) History of open heart surgery Family History Mother No problems noted. Father No problems noted. Social History Alcohol intake: never Patient Tobacco Use Status: Former Tobacco user Review of Systems Const Denies weakness ENT Denies dizziness Card Denies chest pain, Denies chest pain with activity, Denies syncope, Denies rapid heart rate, Denies pedal edema, Denies edema, Denies leg edema, Denies lightheadedness, Denies palpitations, Denies dyspnea, Denies dyspnea on exertion and Denies orthopnea Resp Denies cough, Denies dyspnea and Denies dyspnea on exertion GI Denies hematochezia and Denies change in stool character Musc Denies abnormal gait, Denies muscle cramps, Denies muscle weakness, Denies numbness, Denies radiating pain into limb and Denies tingling Neuro Denies abnormal gait, Denies dizziness, Denies syncope, Denies numbness, Denies tingling and Denies weakness Endo Denies palpitations Physical Exam Vital Signs: Last Vital Signs Pulse 53 04/15/25 13:47 BP 116/60 04/15/25 13:47 BMI result Body Mass Index 27.1 Const General: comfortable and no acute distress Orientation/consciousness: patient oriented x3 HEENT Other: Unremarkable Head: Yes normal to inspection Neck Neck: Yes normal visual inspection Chest Chest palpation & inspection: normal inspection of the chest Resp Auscultation: clear to auscultation bilaterally Cardio Palpation: normal PMI Heart sounds: S1 normal heart sound present, S2 normal heart sound present, no gallops, no murmurs and no rubs GI Palpation (GI): Soft to palpation Back/Spine/Pelvis Other: unremarkable Skin General skin exam: no rashes or lesions noted Neuro General: patient oriented x3 Extrem General: Yes normal to inspection Psych Mental Status: mental status grossly normal Office Procedures EKG Details: EKG shows atrial fibrillation at a rate of 53/Min; incomplete right bundle-branch block pattern; ventricular paced complex. [id number]-[id number], Complete Assessment & Plan Assessment & Plan (1) S/P transcatheter mitral valve replacement (TMVR): Code(s): Z95.2 - Presence of prosthetic heart valve Category: Surgical Plan: In the last echocardiogram from 08/2024, normally functioning bioprosthetic mitral valve. Stable. Infective endocarditis prophylaxis per protocol. (2) Ventricular tachycardia: Code(s): I47.20 - Ventricular tachycardia, unspecified Category: Medical Plan: She is maintained on long-term Sotalol. Check labs. (3) Persistent atrial fibrillation: Code(s): I48.19 - Other persistent atrial fibrillation Category: Medical Plan: Sotalol is more for ventricular tachycardia than atrial fibrillation. Rate seems well controlled. Advised to resume Eliquis and minimize NSAID use. Consider pain management consult but she states she has been that before. Also history of left atrial appendage ligation from prior cardiac surgery. (4) Chronic heart failure with preserved ejection fraction: Code(s): I50.32 - Chronic diastolic (congestive) heart failure Category: Medical Plan: On Torsemide. Stable. (5) Atherosclerotic cardiovascular disease: Code(s): I25.10 - Atherosclerotic heart disease of [place] coronary artery without angina pectoris Category: Medical Plan: Last cardiac catheterization 2018- LAD showed only minor irregularities. Atretic FONSECA graft. Probably from nonobstructive LAD. Otherwise normal coronaries. She has not been on statins in the past. Unclear reason. Consider starting after lipid panel. Plan Discussion Notes I discussed with the patient the importance of resuming Eliquis to prevent stroke risk associated with atrial fibrillation. We reviewed the potential bleeding risks of combining ibuprofen with Eliquis and explored alternative pain management strategies. I also explained the need for regular blood work to monitor her health and scheduled a follow-up in six months. Patient was informed and verbally consented to the use of an ambient scribe for clinic note documentation during this visit. Orders: Orders Basic Metabolic Panel Today I50.9 - Heart failure, unspecified B Type Natriuretic Peptide Today I50.9 - Heart failure, unspecified Lipid Panel Today E78.5 - Hyperlipidemia, unspecified Patient Instructions: - Resume taking Eliquis as prescribed to manage atrial fibrillation. - Limit the use of ibuprofen to reduce bleeding risk. - Complete the ordered blood work at your convenience. - Schedule a follow-up appointment in six months. Coding Level of Care Code Est Pt Level 4 (08145) Complex EM visit Add On G2211 Diagnoses S/P transcatheter mitral valve replacement (TMVR) Z95.2 Ventricular tachycardia I47.20 Persistent atrial fibrillation I48.19 Chronic heart failure with preserved ejection fraction I50.32 Atherosclerotic cardiovascular disease I25.10 CPT Codes EKG - CPT: 83124-[id number], Complete ([id number])
--- OUTSIDE RECORDS SUMMARY | 2025-04-15 13:54 | XMS_ITS | Clinical Summary ---
Author Organization [facility], Address [address] [place] [address] [place] [address] Phone Care Team Providers Care Race Engine Builder Name Role Phone Mamta Martin PA-C Primary Care Provider [phone] Allergies No known active allergies Medications amoxicillin [...] Comments Breast Cancer Screening 1955 Pneumococcal Vaccine: 50+ Ye ars (1 of 2 - PCV) 11/13/1974 Colorectal Cancer Screening: Annual FOBT 11/13/2004 Colorectal Cancer Screening: Colonoscopy 11/13/2004 Colorectal Cancer Screening: Sigmoidoscopy 11/13/2004 Influenza Vaccine (#1) 2025 Hepatitis B Vaccine Aged Out No longe r eligible based on patient's age to complete this topic Insurance [facility] JAY VIDAL [id number] Care Teams Race Engine Builder Relationship Specialty Start Date End Date Mamta Martin PA-C [address] [place] [id number] PCP - General Family Medicine 09/09/20
--- OUTSIDE RECORDS SUMMARY | 2025-04-15 13:54 | XMS_ITS | Clinical Summary ---
Author Organization [employer] Address [address] [facility] [address] [place] [address] Care Team Providers Care Electro Mechanical Engineer Name Role Phone Unavailable Primary Care Provider [...] hour before the dental procedure 1 Active amoxicillin-cl avulanate (Augmentin) 500-125 MG tablet 2 Active apixaban (Eliquis) 5 MG tablet Take 1 tablet by mouth every 12 (twelve) hours. Active buprenorphine- naloxone (Suboxone) 8-2 MG SL tablet TAKE 1.5 [...] mouth in the morning and at bedtime. 2 Active amoxicillin (Amoxil) 500 MG capsule Premedication before dental procedure Take 4 (four) one hour before dental procedure 20 capsule 4 5 Active Active Problems Problem Noted Date Diagnosed Date Ventricular tachycardia 12/29/2024 Severe obesity 12/29/2024 Scoliosis 12/29/2024 S/P MVR (mitral valve repair) 12/29/2024 Poor short-term memory 12/29/2024 Mitral valve prolapse 12/29/2024 Implantable cardioverter-defibrillator (ICD) in situ 12/29/2024 History of coronary artery bypass surgery 2024 H/O CHF 12/29/2024 Ex-smoker 12/29/2024 Dysplasia of vulva 12/29/2024 Cardiac arrest due to underlying cardiac conditi on 12/29/2024 Atrial fibrillation 12/29/2024 Arteriosclerosis of coronary artery 12/29/2024 Alcohol dependence 12/29/2024 Congestive heart failure 11/02/2020 Stage 3a chronic [...] Dental Prophylaxis 1955 Dental X-Ray: Bitewings 1955 Depression Screening 1955 FIT DNA/Cologuard 1955 FIT 1955 FOBT 1955 Lipid Panel 1955 SDOH Screening 1955 Sigmoidoscopy 1955 Alcohol/Substance Use Screening 1967 Hepatitis C Screening 11/13/1973 DTaP/Tdap/Td Vaccines (1 - Tdap) 11/13/1974 Pneumococcal Vaccine: 50+ Ye ars (1 of 2 - PCV) 11/13/1974 Mammogram 1995 Zoster Vaccines (1 of 2) 11/13/2005 RSV Patients and Pa tients Aged 60 years or older (1 - Risk 60-74 years 1-dose series) 2015 COVID-19 Vaccine (1 - 2023-2 5 season) 2024 Influenza Vaccine (#1) 2025 Tobacco Screening 12/29/2025 12/29/2024 Dental X-Ray: Full Mouth 12/31/2027 12/29/2024 HIB Vaccines Aged Out No longer eligi [...] patient's age to complete this topic Meningococcal B Vaccine Aged Out No l onger eligible based on patient's age to complete this topic Meningococcal Vaccine Aged Out No yanelis sigrid eligible based on patient's age to complete this topic RSV under 20 months Aged Out No longe r eligible based on patient's age to complete this topic Rotavirus Vaccines Aged Out No longer eligible based on patient's age to complete this topic Procedures Procedure Name Priority Date/Time Associated Diagnosis Comments PANORAMIC RADIOGRAPHIC IMAGE Routine 12/29/2024 3:00 PM EDT from Last 3 Months or Most Recently Relevant to Health Maintenance Insurance [facility] MEDICAID STAND ADULT
== END 2025-04-15 14:12 | disposition home or self-care (01) ==
LOC: HO.HCS 13:45
PROVIDERS: PCP Nurse Practitioner Family; Visit Provider Internal Medicine
DX: Z95.2 Presence of prosthetic heart valve (principal); I47.20 Ventricular tachycardia, unspecified; I48.19 Other persistent atrial fibrillation; I50.32 Chronic diastolic (congestive) heart failure; I25.10 Atherosclerotic heart disease of native coronary artery without angina pectoris
CPT/HCPCS: 93010; 99214; G2211

== ENCOUNTER → 2025-04-15 13:45 | Outpatient (BNVA) | payer MEDICARE, MEDICAID, SELFPAY | PROVIDERS: PCP Nurse Practitioner Family; Visit Provider Internal Medicine | DX: I11.0 Hypertensive heart disease with heart failure (principal); I50.32 Chronic diastolic (congestive) heart failure; I25.10 Atherosclerotic heart disease of native coronary artery without angina pectoris; I45.10 Unspecified right bundle-branch block; I48.19 Other persistent atrial fibrillation; I47.20 Ventricular tachycardia, unspecified; E78.5 Hyperlipidemia, unspecified; Z95.810 Presence of automatic (implantable) cardiac defibrillator; Z95.2 Presence of prosthetic heart valve; Z95.5 Presence of coronary angioplasty implant and graft | CPT/HCPCS: 93005; 99212 ==

== ENCOUNTER → 2025-06-14 23:59 | Outpatient (BNV) | payer MEDICARE, MEDICAID, SELFPAY ==
--- NOTE | 2025-06-20 09:16 | MHC.OFFVIS ---
Intake Visit Reasons: Remote ICD check- jacinto [employer] Allergies No Known Allergies Allergy (Verified 01/21/24 13:35) [facility] Medical History (Updated 10/13/24 @ 13:27 by Ok Macias MD) Incomplete right bundle branch block Scoliosis (and kyphoscoliosis), idiopathic PITTS (dyspnea on exertion) Restrictive lung disease Atherosclerotic cardiovascular disease Persistent atrial fibrillation Chronic heart failure with preserved ejection fraction Ventricular tachycardia Cardiac defibrillator in place Surgical History Status post mitral valve replacement with bioprosthetic valve Status post aorto-coronary artery bypass graft S/P transcatheter mitral valve replacement (TMVR) History of open heart surgery Family History Mother No problems noted. Father No problems noted. Social History Alcohol intake: never Patient Tobacco Use Status: Former Tobacco user Office Procedures Cardiac Device Check Cardiac Device Check Details: Date of service 06/14/2025; Battery life >13 years; normal lead parameters; no treated VT/VF; normal ICD function. [id number] Cardiac Interrogation, implant defibrillator w/interim Procedure code (CPT) selection complete Assessment & Plan Assessment & Plan (1) ICD (implantable cardioverter-defibrillator) in place: Code(s): Z95.810 - Presence of automatic (implantable) cardiac defibrillator Category: Medical (2) Persistent atrial fibrillation: Code(s): I48.19 - Other persistent atrial fibrillation Category: Medical (3) Ventricular tachycardia: Code(s): I47.20 - Ventricular tachycardia, unspecified Category: Medical Plan x Coding Level of Care Code Procedure Only Diagnoses ICD (implantable cardioverter-defibrillator) in place Z95.810 Persistent atrial fibrillation I48.19 Ventricular tachycardia I47.20 CPT Codes Cardiac Device Check - Cardiac Device 13: [id number] Cardiac Interrogation, implant defibrillator w/interim ([id number])
== END ==
PROVIDERS: PCP Nurse Practitioner Family; Visit Provider Internal Medicine
DX: I48.19 Other persistent atrial fibrillation (principal); Z95.810 Presence of automatic (implantable) cardiac defibrillator; I47.20 Ventricular tachycardia, unspecified
CPT/HCPCS: 93295